=== PATIENT | female | born 1960 | race Caucasian/White ===

== ENCOUNTER → 2018-02-04 13:01 | Outpatient (CLI) | payer MEDICAID | END | disposition home or self-care (01) | LOC: D.CT 13:00 | DX: R06.02 Shortness of breath (principal) ==

== ENCOUNTER → 2018-02-14 07:29 | Outpatient (CLI) | payer MEDICAID | END | disposition home or self-care (01) | LOC: D.MRI 07:29 | DX: E27.8 Other specified disorders of adrenal gland (principal); R19.09 Other intra-abdominal and pelvic swelling, mass and lump ==

== ENCOUNTER → 2018-07-14 08:43 | Outpatient (CLI) | payer MEDICAID ==
--- NOTE | 2018-07-14 09:38 | NUR ---
PATIENT WAS SENT OVER FOR AN ABG. CALLED MEGGAN LITTLEJOHN'S NURSE REGUARDING THE RESULTS. ASKED IF I NEEDED TO SEND PATIENT TO THE OFFICE OR SOMEWHERE, WAS ADVISED TO SENT PATIENT HOME.
== END | disposition home or self-care (01) ==
LOC: D.RT 08:43
DX: Z04.89 Encounter for examination and observation for other specified reasons (principal)

== ENCOUNTER → 2018-09-05 11:07 | Outpatient (CLI) | payer MEDICAID ==
[2018-09-05 11:43] LABS: BASOPHILS 0.2 % (0-2); HEMATOCRIT 54.6 % (36.0-48.0); HEMOGLOBIN 17.4 g/dL (12-16); IMMATURE GRANULOCYTES 0.2 % (0-5); MCH 29.4 pg (26.0-34.0); MCHC 31.9 g/dL (31.0-37.0); MCV 92.2 fL (80.0-100.0); MEAN PLATELET VOLUME 11.8 fL (7.4-10.4); MONOCYTES 9.3 % (2-11); NEUTROPHILS 60.3 % (40-80); PLATELET COUNT 163 10x3/uL (130-400); RBC 5.92 10x6/uL (4.00-5.40); RDW 14.6 % (11.5-14.5)
== END | disposition home or self-care (01) ==
LOC: D.LABREF 11:07
DX: D75.1 Secondary polycythemia (principal); R53.83 Other fatigue

== ENCOUNTER → 2018-09-09 11:06 | Outpatient (CLI) | payer MEDICAID ==
[2018-09-14 03:10] LABS: ANGIOTENSIN CONVERTING ENZYME 40 U/L (14-82)
== END | disposition home or self-care (01) ==
LOC: D.RT 08-29 08:00 → D.LAB 08-29 08:45
PROVIDERS: ATTEND Internal Medicine Pulmonary Disease
DX: R91.8 Other nonspecific abnormal finding of lung field (principal); J44.9 Chronic obstructive pulmonary disease, unspecified

== ENCOUNTER 2018-12-23 10:54 | Inpatient (IN) | payer MEDICAID ==
[~2018-12-23] VITALS: Ht 167.6 cm; Wt 78.5 kg
[2018-12-23] MEDS ORDERED: RISPERDAL4 MG PO (10:58)
[2018-12-23] MEDS ORDERED: CELEXA20 MG PO (10:59)
[2018-12-23] MEDS ORDERED: TRAZODONE HCL150 MG PO (11:00)
[2018-12-23] MEDS ORDERED: FUROSEMIDE20 MG PO (11:00)
[2018-12-23 11:38] LABS: BASOPHILS 0.1 % (0-2); EOSINOPHILS 0.5 % (0-7); HEMATOCRIT 50.4 % (36.0-48.0); HEMOGLOBIN 15.4 g/dL (12-16); IMMATURE GRANULOCYTES 0.1 % (0-5); LYMPHOCYTES 10.9 % (15-50); MCH 31.4 pg (26.0-34.0); MCHC 30.6 g/dL (31.0-37.0); MCV 102.6 fL (80.0-100.0); MEAN PLATELET VOLUME 10.5 fL (7.4-10.4); MONOCYTES 9.3 % (2-11); NEUTROPHILS 79.1 % (40-80); PLATELET COUNT 147 10x3/uL (130-400); RBC 4.91 10x6/uL (4.00-5.40); RDW 13.9 % (11.5-14.5); WBC 7.5 10x3/uL (4.8-10.8)
[2018-12-23 12:00] LABS: ALBUMIN 2.9 g/dL (3.4-5.0); ALKALINE PHOSPHATASE 60 U/L (46-116); ALT (SGPT) 14 U/L (10-68); BILIRUBIN - TOTAL 0.32 mg/dL (0.2-1.3); CALC OSMOLALITY 289 mosm/kg (275-300); CALCIUM 8.2 mg/dL (8.5-10.1); CHLORIDE - SERUM 102 mmol/L (98-107); CREATININE - SERUM 0.6 mg/dL (0.6-1.3); GLUCOSE 129 mg/dL (74-106); POTASSIUM - SERUM 3.9 mmol/L (3.5-5.1); PROTEIN - SERUM 6.6 g/dL (6.4-8.2); SODIUM 145 mmol/L (136-145); TROPONIN-I 0.022 ng/mL (0.000-0.060); UREA NITROGEN 10 mg/dL (7-18); eGFR NON AFRICAN AMERICAN > 90 mL/min (90-120)
[2018-12-23 12:01] LABS: CARBON DIOXIDE 45.4 mmol/L (21.0-32.0)
[2018-12-23 12:42] VITALS: BP 125/66
[2018-12-23 16:09] VITALS: BP 125/66; BMI 39.9
[2018-12-23 20:00] VITALS: BP 143/75
[2018-12-24] VITALS: BP 137/72
[2018-12-24 04:00] VITALS: BP 142/69
[2018-12-24 05:05] LABS: BASOPHILS 0 % (0-2); EOSINOPHILS 0 % (0-7); HEMATOCRIT 50.4 % (36.0-48.0); HEMOGLOBIN 15.6 g/dL (12-16); IMMATURE GRANULOCYTES 0.3 % (0-5); LYMPHOCYTES 11.6 % (15-50); MCH 31.5 pg (26.0-34.0); MCV 101.6 fL (80.0-100.0); MEAN PLATELET VOLUME 10.8 fL (7.4-10.4); MONOCYTES 1.3 % (2-11); NEUTROPHILS 86.8 % (40-80); PLATELET COUNT 152 10x3/uL (130-400); RBC 4.96 10x6/uL (4.00-5.40); RDW 13.7 % (11.5-14.5); WBC 6.1 10x3/uL (4.8-10.8)
[2018-12-24 05:25] LABS: CALC OSMOLALITY 281 mosm/kg (275-300); CALCIUM 8.6 mg/dL (8.5-10.1); CHLORIDE - SERUM 100 mmol/L (98-107); CREATININE - SERUM 0.4 mg/dL (0.6-1.3); GLUCOSE 129 mg/dL (74-106); SODIUM 141 mmol/L (136-145); UREA NITROGEN 11 mg/dL (7-18); eGFR NON AFRICAN AMERICAN > 90 mL/min (90-120)
[2018-12-24 05:26] LABS: CARBON DIOXIDE 42.4 mmol/L (21.0-32.0)
--- NOTE | 2018-12-24 08:06 | HP ---
PATIENT: DEVEN AGARWAL MEDICAL RECORD: [id number] ACCOUNT: [id number] LOCATION:[address] : 60 ADMISSION DATE: 12/23/18 PCP: JOSE MARIA LITTLEJOHN MD HISTORY AND PHYSICAL EXAMINATION DATE OF ADMISSION: 12/23/2018. HISTORY OF PRESENT ILLNESS: Maddie is a 58-year-old female goes to small group work therapy with a diagnosis of schizophrenia. She has a history of COPD and has seen Dr. Dunlap in his clinic. She was brought in via EMS complaining of increased shortness of breath over the last 4 days. She uses oxygen at home. She continues to smoke. Denies fever or chills. No nausea or vomiting. Shortness of breath is worse with activities of daily living. She was placed on BiPAP in the ER and has done better. PAST MEDICAL HISTORY: Tobacco abuse, COPD, schizophrenia, overactive bladder, polycythemia most likely due to chronic obstructive pulmonary disease, and obesity. PAST SURGICAL HISTORY: None known. HOME MEDICATIONS: Lasix 20 mg a day, VESIcare 5 mg a day, Celexa 20 mg a day, Risperdal 4 mg b.i.d., and trazodone 100 mg at bedtime. ALLERGIES: None known. HABITS: She continues to smoke less than a pack a day now. Denies alcohol or drug use. FAMILY HISTORY: Mother is alive with atrial fibrillation, diabetes, and hypertension. Sister with heart disease. SOCIAL HISTORY: She is in a [facility] situation and small group work therapy. REVIEW OF SYSTEMS: GENERAL: No major weight changes. HEENT: No particular sinus or allergy problems. RESPIRATORY: COPD on oxygen. CARDIAC: No diagnosis of coronary artery disease or heart failure. GASTROINTESTINAL: Occasional heartburn. GENITOURINARY: She has overactive bladder. MUSCULOSKELETAL: No significant problems there. NEUROLOGIC: No migraines or seizures. PSYCHIATRIC: Has schizophrenia. PHYSICAL EXAMINATION: In the Emergency Room, VITAL SIGNS: Temperature 97.9, pulse 66, respirations 24, blood pressure 101/46, and O2 sats 98%. GENERAL: She is on BiPAP currently. industrial technology teacher in the room and she is more stable now. HEENT: Grossly within normal limits. NECK: Supple. HEART: Regular rate and rhythm. LUNGS: Distant breath sounds. No wheeze. ABDOMEN: Soft. HISTORY AND PHYSICAL [id number] DEVEN AGARWAL EXTREMITIES: No edema. LABORATORY DATA: ABG, pH 7.303, pCO2 of 92, pO2 of 57, and O2 sat was 83%. She is on 2 liters nasal cannula at that time. Basic metabolic panel is all normal. Liver enzymes are normal. Troponin 0.022. ProBNP 1591. CBC with a white count of 7500, hemoglobin 15.4, and hematocrit 54.4. Chest x-ray was read by radiologist, there is some perihilar vascular congestion superimposed multifocal infection was not excluded, trace to small pleural effusion. ASSESSMENT: 1. Chronic obstructive pulmonary disease exacerbation. 2. Schizophrenia. PLAN: Continue Lasix. Respiratory meds. Continue bypass until could be weaned off of that. IV steroids. Other tests and procedures as warranted. TRANSINT:[id number] Voice Confirmation ID: [id number] DOCUMENT ID: [id number] JOSE MARIA LITTLEJOHN MD at 0806 CC: [id number] DICTATION DATE: 12/23/18 233 SCHOOL SUPERVISOR: 12/24/18 0105 ADM IN [facility] [address] [place] [address]
[2018-12-24 09:12] VITALS: BP 103/53; BP 142/76
[2018-12-24 11:37] VITALS: BP 130/62
[2018-12-24 12:34] VITALS: Ht 167.6 cm; Wt 78.5 kg
[2018-12-24 16:44] VITALS: BP 134/78
[2018-12-24 20:00] VITALS: BP 112/59
[2018-12-25] VITALS: BP 144/80
[2018-12-25 04:00] VITALS: BP 133/73
[2018-12-25 05:53] LABS: BASOPHILS 0 % (0-2); EOSINOPHILS 0 % (0-7); HEMATOCRIT 50.1 % (36.0-48.0); HEMOGLOBIN 15.7 g/dL (12-16); IMMATURE GRANULOCYTES 0.1 % (0-5); LYMPHOCYTES 9.9 % (15-50); MCH 31.7 pg (26.0-34.0); MCHC 31.3 g/dL (31.0-37.0); MCV 101.2 fL (80.0-100.0); MEAN PLATELET VOLUME 10.8 fL (7.4-10.4); MONOCYTES 6.6 % (2-11); NEUTROPHILS 83.4 % (40-80); PLATELET COUNT 141 10x3/uL (130-400); RBC 4.95 10x6/uL (4.00-5.40); RDW 13.9 % (11.5-14.5)
[2018-12-25 05:54] LABS: WBC 7.7 10x3/uL (4.8-10.8)
[2018-12-25 06:14] LABS: CHLORIDE - SERUM 101 mmol/L (98-107); CREATININE - SERUM 0.5 mg/dL (0.6-1.3); GLUCOSE 106 mg/dL (74-106); POTASSIUM - SERUM 3.8 mmol/L (3.5-5.1); SODIUM 144 mmol/L (136-145); eGFR NON AFRICAN AMERICAN > 90 mL/min (90-120)
[2018-12-25 06:24] LABS: CALC OSMOLALITY 287 mosm/kg (275-300); UREA NITROGEN 15 mg/dL (7-18)
[2018-12-25 06:26] LABS: CARBON DIOXIDE 44.3 mmol/L (21.0-32.0)
[2018-12-25 07:46] VITALS: BP 149/80
[2018-12-25 11:46] VITALS: BP 143/77
[2018-12-25 15:21] VITALS: BP 124/68
[2018-12-25 20:00] VITALS: BP 102/54
[2018-12-26 00:11] VITALS: BP 140/70
[2018-12-26 04:00] VITALS: BP 168/78
[2018-12-26 06:44] LABS: CALCIUM 8.9 mg/dL (8.5-10.1); CHLORIDE - SERUM 99 mmol/L (98-107); CREATININE - SERUM 0.6 mg/dL (0.6-1.3); GLUCOSE 130 mg/dL (74-106); POTASSIUM - SERUM 3.6 mmol/L (3.5-5.1); SODIUM 143 mmol/L (136-145); eGFR NON AFRICAN AMERICAN > 90 mL/min (90-120)
[2018-12-26 06:56] LABS: CALC OSMOLALITY 288 mosm/kg (275-300); UREA NITROGEN 19 mg/dL (7-18)
[2018-12-26 06:58] LABS: CARBON DIOXIDE 47.2 mmol/L (21.0-32.0)
[2018-12-26 07:28] LABS: BASOPHILS 0 % (0-2); EOSINOPHILS 0 % (0-7); HEMATOCRIT 50.3 % (36.0-48.0); HEMOGLOBIN 15.7 g/dL (12-16); IMMATURE GRANULOCYTES 0.1 % (0-5); LYMPHOCYTES 11.7 % (15-50); MCH 31.2 pg (26.0-34.0); MCHC 31.2 g/dL (31.0-37.0); MCV 99.8 fL (80.0-100.0); MEAN PLATELET VOLUME 11.3 fL (7.4-10.4); MONOCYTES 7.3 % (2-11); NEUTROPHILS 80.9 % (40-80); PLATELET COUNT 147 10x3/uL (130-400); RBC 5.04 10x6/uL (4.00-5.40); RDW 14.2 % (11.5-14.5); WBC 7.6 10x3/uL (4.8-10.8)
[2018-12-26 09:01] VITALS: BP 140/89
[2018-12-26 11:41] VITALS: BP 130/86
[2018-12-26 18:48] VITALS: BP 130/60
[2018-12-26 20:00] VITALS: BP 145/74
[2018-12-27] VITALS: BP 138/72
[2018-12-27 04:00] VITALS: BP 143/68
[2018-12-27 05:51] LABS: BASOPHILS 0 % (0-2); EOSINOPHILS 0 % (0-7); HEMATOCRIT 51.7 % (36.0-48.0); HEMOGLOBIN 16.3 g/dL (12-16); IMMATURE GRANULOCYTES 0.2 % (0-5); LYMPHOCYTES 9.7 % (15-50); MCH 31.5 pg (26.0-34.0); MCHC 31.5 g/dL (31.0-37.0); MCV 99.8 fL (80.0-100.0); MEAN PLATELET VOLUME 11.1 fL (7.4-10.4); MONOCYTES 6.7 % (2-11); NEUTROPHILS 83.4 % (40-80); PLATELET COUNT 136 10x3/uL (130-400); RBC 5.18 10x6/uL (4.00-5.40); RDW 14.2 % (11.5-14.5); WBC 6.1 10x3/uL (4.8-10.8)
[2018-12-27 06:05] LABS: CALC OSMOLALITY 284 mosm/kg (275-300); CALCIUM 9.3 mg/dL (8.5-10.1); CHLORIDE - SERUM 100 mmol/L (98-107); CREATININE - SERUM 0.5 mg/dL (0.6-1.3); GLUCOSE 117 mg/dL (74-106); POTASSIUM - SERUM 3.4 mmol/L (3.5-5.1); SODIUM 141 mmol/L (136-145); UREA NITROGEN 20 mg/dL (7-18); eGFR NON AFRICAN AMERICAN > 90 mL/min (90-120)
[2018-12-27 06:27] LABS: CARBON DIOXIDE 40.5 mmol/L (21.0-32.0)
[2018-12-27 08:37] VITALS: BP 147/75
--- NOTE | 2018-12-27 11:55 | MORECARE ---
CASE MANAGEMENT DISCHARGE SUMMARY PATIENT: DEVEN AGARWAL UNIT: [id number] ADM DATE: 12/23/18 AGE: 58 : 60 SEX: F ROOM/BED: D.2130 AUTHOR: ROSA ROMAN PHYSICIAN: REFERRING PHYSICIAN: JOSE MARIA LITTLEJOHN MD DATE OF SERVICE: 12/27/18 Discharge Plan Patient Name: DEVEN AGARWAL [facility] [facility] 1960 Planned Disposition: Other Type of Facility Anticipated Discharge Date: 12/28/18 Discharge Date: Expected LOS: 5 Initial Reviewer: [email or web address] Initial Review Date: 12/27/2018 Generated: 12/27/18 12:54 pm External Providers External Provider: Kate Main Next Contact Date: 12/27/2018 Service Request Date: Service Type: Resolution: Reviewer: Comments: Coverage Notice Reviewer: [id number] - Beto Silva Notice Issued Date-Time: 12/27/2018 9:50 Notice Type: Patient Choice Letter Notice Delivered To: Patient Relationship to Patient: Telex Operator Name: Delivery Method: HAND - Hand Delivered [place] Days: Prior Verbal Notification: Recipient Understood Notice: Yes Recipient Signature: Yes Med Rec Note Co-signed by Attending: Coverage Notice Comment: no medical equipment provider preference Patient Name: DEVEN AGARWAL Page 32620 at 1155 All edits/amendments must be made on the electronic document DICTATION DATE: 12/27/18 1154 GEOINT ANALYST: DM 12/27/18 1154 RPT#: [id number] DC DATE: STATUS: ADM IN [facility] [address] [place] [address] END OF REPORT
--- NOTE | 2018-12-27 12:11 | MORECARE ---
CASE MANAGEMENT DISCHARGE SUMMARY PATIENT: DEVEN AGARWAL UNIT: [id number] ADM DATE: 12/23/18 AGE: 58 : 60 SEX: F ROOM/BED: D.2130 AUTHOR: ABEL,DOC PHYSICIAN: REFERRING PHYSICIAN: JOSE MARIA LITTLEJOHN MD DATE OF SERVICE: 12/27/18 Discharge Plan Patient Name: DEVEN AGARWAL Facility: [facility]:[place] : 1960 Planned Disposition: Other Type of Facility Anticipated Discharge Date: 12/28/18 Discharge Date: Expected LOS: 5 Initial Reviewer: [id number] Initial Review Date: 12/27/2018 Generated: 12/27/18 1:11 pm DCPIA - Discharge Planning Initial Assessment Updated by [id number]: Beto Silva on 12/27/18 12:05 pm * Is the patient Alert and Oriented? Yes * How many steps to enter\exit or inside your home? NONE * PCP DR. LITTLEJOHN * Pharmacy [facility] (MIXING MACHINE FEEDER), [facility] (SHORT TERM) * Preadmission Environment Longterm * Facility Name [facility] * ADLs Partial Dependent * Partial ADLs (Assistance needed) Medication Management * Equipment Oxygen Rolling Walker * Other Equipment ROLLATOR WALKER, HOME OXYGEN AT NIGHT ONLY [facility], MEDICAL EQUIPMENT PROVIDER * List name and contact numbers for known caregivers / representatives who currently or will assist patient after discharge: CECILIA ARGUELLES, [facility] NURSE, JASMINE CARRILLO, GREEN BUILDING ARCHITECT, * Verbal permission to speak to the caregivers and representatives has been obtained from the patient. Yes * Community resources currently utilized Other * Please name any agencies selected above. MENT[facility]ALTH DAY TREATMENT, 8 HOURS DAILY, WEDNESDAY THRU WEDNESDAY * Additional services required to return to the preadmission environment? Yes * Can the patient safely return to the preadmission environment? Yes * Has this patient been hospitalized within the prior 30 days at any hospital? No Coverage Notice Reviewer: [id number] Ric Silva Notice Issued Date-Time: 12/27/2018 9:50 Notice Type: Patient Choice Letter Notice Delivered To: Patient Relationship to Patient: High School Combination Teacher Name: Delivery Method: HAND - Hand Delivered Vinita Days: Prior Verbal Notification: Recipient Understood Notice: Yes Recipient Signature: Yes Med Rec Note Co-signed by Attending: Coverage Notice Comment: no medical equipment provider preference Last DP export: 12/27/18 10:54 a Patient Name: DEVEN AGARWAL Page 60860 at 1211 All edits/amendments must be made on the electronic document DICTATION DATE: 12/27/18 1210 INTAKE COUNSELOR: JESS 12/27/18 1210 RPT#: [id number] DC DATE: STATUS: ADM IN [facility] [address] [place] [address] END OF REPORT
--- NOTE | 2018-12-27 12:44 | MORECARE ---
CASE MANAGEMENT DISCHARGE SUMMARY PATIENT: DEVEN AGARWAL UNIT: [id number] ADM DATE: 12/23/18 AGE: 58 : 60 SEX: F ROOM/BED: D.6395 AUTHOR: ABELDOC PHYSICIAN: REFERRING PHYSICIAN: JOSE MARIA LITTLEJOHN MD DATE OF SERVICE: 12/27/18 Discharge Plan Patient Name: DEVEN AGARWAL Facility: [facility]:[place] : 1960 Planned Disposition: Other Type of Facility Anticipated Discharge Date: 12/28/18 Discharge Date: Expected LOS: 5 Initial Reviewer: [id number] Initial Review Date: 12/27/2018 Generated: 12/27/18 1:43 pm Comments DCP- Discharge Planning Updated by [email or web address]: Beto Peralta on 12/27/18 11:[address] Patient Name: DEVEN AGARWAL Admission Status: ER Accout number: [id number] Admission Date: 12-23-2018 : 1960 Admission Diagnosis: Attending: JOSE MARIA LITTLEJOHN Current LOS: 4 Anticipated DC Date: 12-28-2018 Planned Disposition: Other Type of Facility Primary Insurance: MEDICAID [place] Planned External Provider: [facility] Discharge Planning Comments: CM MET WITH PT IN ROOM TO DISCUSS DISCHARGE PLANNING AND NEEDS. PT REPORTS LIVING AT [facility] FOR THE PAST 18 YEARS. PT HAS HOME OXYGEN AND A ROLLING WALKER WITH SEAT AND BRAKES. PT DOES NOT KNOW WHO HER PROVIDER IS NOR DOES SHE KNOW WHO PROVIDES HER MEDICATIONS. PT DIRECTED CM TO CALL NURSE AT HOME, CECILIA ARGUELLES. PT ATTENDS DAY TREATMENT 8 HOURS PER DAY, WEDNESDAY THROUGH WEDNESDAY. PT HAS NO OUTSIDE SERVICES ASSISTING IN THE HOME. CM DISCUSSED AVAILABILITY OF HOME HEALTH, REHAB SERVICES AND MEDICAL EQUIPMENT. PT DENIES DISCHARGE NEEDS AND DOES WANT THE TRILOGY MACHINE, STATING SHE WILL WEAR IT AT HOME. PT REPORTS [facility] WILL PICK HER UP FOR DISCHARGE HOME. CM CALLED CECILIA ARGUELLES, , VERIFIED PT'S PHARMACY OF [facility] FOR MACHINE TOOL DESIGNER MEDICATIONS AND [facility] FOR SHORT TERM MEDICATION NEEDS. PT'S OXYGEN IS FROM [facility], BUT CECILIA DOES NOT THINK THAT [facility] PROVIDES TRILOGY. PT CAN HAVE TRILOGY AT FACILITY BUT SHE WILL BE IN DAY TREATMENT ON WEDNESDAY THRU WEDNESDAY, 8 HOURS DAILY AND WILL NOT BE ABLE TO GO HOME TO USE TRILOGY THEN. CM CALLED [facility], SPOKE TO JETHRO, THEY DO NOT PROVIDE TRILOGY MACHINES. CM CALLED [facility], , SPOKE TO WILMAN AND PROVIDED REFERRAL INFORMATION FOR TRILOGY. CM FAXED REFERRAL TO [facility], . [facility] TO PROCESS ORDER AND IF MEDICAID APPROVES, [facility] WILL DELIVER TRILOGY TO HOSPITAL. PT PLANS TO DISCHARGE BACK TO [facility]. CM WAITING ON PROCESSING OF TRILOGY ORDER AND IF ELIGIBLE, DELIVERY OF TRILOGY BY [facility]. FOR DISCHARGE BACK TO [facility], NURSE REPORT TO BE CALLED TO CECILIA ARGUELLES AT [phone], FAX DISCHARGE INFORMATION TO [facility] AT [phone]. BERT PERALTA, CASE MANAGEMENT Game Producer: Beto Peralta DCPIA - Discharge Planning Initial Assessment Updated by [id number]: Beto Peralta on 12/27/18 12:05 pm * Is the patient Alert and Oriented? Yes * How many steps to enter\exit or inside your home? NONE * PCP DR. LITTLEJOHN * Pharmacy [facility] ([place]), [facility] (SHORT TERM) * Preadmission Environment Intermediate * Facility Name [facility] WORK [facility]APY * ADLs Partial Dependent * Partial ADLs (Assistance needed) Medication Management * Equipment Oxygen Rolling Walker * Other Equipment ROLLATOR WALKER, HOME OXYGEN AT NIGHT ONLY [facility], MEDICAL EQUIPMENT PROVIDER * List name and contact numbers for known caregivers / representatives who currently or will assist patient after discharge: CECILIA ARGUELLES, [facility] NURSE, JASMINE CARRILLO, FINANCIAL INVESTMENT ADVISER, * Verbal permission to speak to the caregivers and representatives has been obtained from the patient. Yes * Community resources currently utilized Other * Please name any agencies selected above. MENTAL HEALTH DAY TREATMENT, 8 HOURS DAILY, WEDNESDAY THRU WEDNESDAY * Additional services required to return to the preadmission environment? Yes * Can the patient safely return to the preadmission environment? Yes * Has this patient been hospitalized within the prior 30 days at any hospital? No Coverage Notice Reviewer: [id number] Ric Peralta Notice Issued Date-Time: 12/27/2018 9:50 Notice Type: Patient Choice Letter Notice Delivered To: Patient Relationship to Patient: Private Duty Rn Name: Delivery Method: HAND - Hand Delivered Vinita Days: Prior Verbal Notification: Recipient Understood Notice: Yes Recipient Signature: Yes Med Rec Note Co-signed by Attending: Coverage Notice Comment: no medical equipment provider preference Last DP export: 12/27/18 11:11 a Patient Name: DEVEN AGARWAL Page 03829 at 1244 All edits/amendments must be made on the electronic document DICTATION DATE: 12/27/18 1243 INFANT NANNY: JESS 12/27/18 1243 RPT#: [id number] DC DATE: STATUS: ADM IN [facility] [address] [place] [address] END OF REPORT
--- NOTE | 2018-12-27 16:48 | MORECARE ---
CASE MANAGEMENT DISCHARGE SUMMARY PATIENT: DEVEN AGARWAL UNIT: [id number] ADM DATE: 12/23/18 AGE: 58 : 60 SEX: F ROOM/BED: D.5289 AUTHOR: ABELDOC PHYSICIAN: REFERRING PHYSICIAN: JOSE MARIA LITTLEJOHN MD DATE OF SERVICE: 12/27/18 Discharge Plan Patient Name: DEVEN AGARWAL Facility: [facility]:[place] : 1960 Planned Disposition: Other Type of Facility Anticipated Discharge Date: 12/28/18 Discharge Date: Expected LOS: 5 Initial Reviewer: [email or web address] Initial Review Date: 12/27/2018 Generated: 12/27/18 5:47 pm Comments DCP- Discharge Planning Updated by [email or web address]: Beto Peralta on 12/27/18 3:[address] Patient Name: DEVEN AGARWAL Admission Status: ER Accout number: [id number] Admission Date: 12-23-2018 : 1960 Admission Diagnosis: Attending: JOSE MARIA LITTLEJOHN Current LOS: 4 Anticipated DC Date: 12-28-2018 Planned Disposition: Other Type of Facility Primary Insurance: MEDICAID [place] Planned External Provider: [facility] Discharge Planning Comments: CM MET WITH PT IN ROOM TO DISCUSS DISCHARGE PLANNING AND NEEDS. PT REPORTS LIVING AT [facility] FOR THE PAST 18 YEARS. PT HAS HOME OXYGEN AND A ROLLING WALKER WITH SEAT AND BRAKES. PT DOES NOT KNOW WHO HER PROVIDER IS NOR DOES SHE KNOW WHO PROVIDES HER MEDICATIONS. PT DIRECTED CM TO CALL NURSE AT HOME, CECILIA ARGUELLES. PT ATTENDS DAY TREATMENT 8 HOURS PER DAY, WEDNESDAY THROUGH WEDNESDAY. PT HAS NO OUTSIDE SERVICES ASSISTING IN THE HOME. CM DISCUSSED AVAILABILITY OF HOME HEALTH, REHAB SERVICES AND MEDICAL EQUIPMENT. PT DENIES DISCHARGE NEEDS AND DOES WANT THE TRILOGY MACHINE, STATING SHE WILL WEAR IT AT HOME. PT REPORTS [facility] P[facility] HER UP FOR DISCHARGE HOME. CM CALLED CECILIA ARGUELLES, , VERIFIED PT'S PHARMACY OF [facility] FOR ALF MEDICATIONS AND [facility] FOR SHORT TERM MEDICATION NEEDS. PT'S OXYGEN IS FROM [facility], BUT CECILIA DOES NOT THINK THAT [facility] PROVIDES TRILOGY. PT CAN HAVE TRILOGY AT FACILITY BUT SHE WILL BE IN DAY TREATMENT ON WEDNESDAY THRU WEDNESDAY, 8 HOURS DAILY AND WILL NOT BE ABLE TO GO HOME TO USE TRILOGY THEN. CM CALLED [facility], SPOKE TO JETHRO, THEY DO NOT PROVIDE TRILOGY MACHINES. CM CALLED [facility], , SPOKE TO WILMAN AND PROVIDED REFERRAL INFORMATION FOR TRILOGY. CM FAXED REFERRAL TO [facility], . [facility] TO PROCESS ORDER AND IF MEDICAID APPROVES, [facility] WILL DELIVER TRILOGY TO HOSPITAL. PT PLANS TO DISCHARGE BACK TO [facility]. CM WAITING ON PROCESSING OF TRILOGY ORDER AND IF ELIGIBLE, DELIVERY OF TRILOGY BY [facility]. FOR DISCHARGE BACK TO [facility], NURSE REPORT TO BE CALLED TO CECILIA ARGUELLES AT [phone], FAX DISCHARGE INFORMATION TO [facility] AT [phone]. BERT PERALTA, CASE MANAGEMENT Rubber Insulator: Beto Peralta Appended by Beto Peralta on 12/27/2018 16:47 CDT: TRILOGY DELIVERED TO ROOM, PT INSTRUCTED ON USE BY WIL[facility] OF [facility]. [facility] LOPEZ NOTIFIED. PT PLANS TO DISCHARGE BACK TO [facility]. CM WAITING ON PROCESSING OF TRILOGY ORDER AND IF ELIGIBLE, DELIVERY OF TRILOGY BY [facility]. FOR DISCHARGE BACK TO [facility], NURSE REPORT TO BE CALLED TO CECILIA ARGUELLES AT [phone], FAX DISCHARGE INFORMATION TO [facility] AT [phone]. BERT PERALTA, CASE MANAGEMENT DCPIA - Discharge Planning Initial Assessment Updated by [id number]: Beto Peralta on 12/27/18 12:05 pm * Is the patient Alert and Oriented? Yes * How many steps to enter\exit or inside your home? NONE * PCP DR. LITTLEJOHN * Pharmacy [facility] ([facility]), [place] ([place] TERM) * Preadmission Environment Jail * Facility Name [facility] WORK [facility] * ADLs Partial Dependent * Partial ADLs (Assistance needed) Medication Management * Equipment Oxygen Rolling Walker * Other Equipment ROLLATOR WALKER, HOME OXYGEN AT NIGHT ONLY [facility], MEDICAL EQUIPMENT PROVIDER * List name and contact numbers for known caregivers / representatives who currently or will assist patient after discharge: CECILIA ARGUELLES, [facility] NURSE, JASMINE GERARDO, SUPERVISOR IRRIGATION, * Verbal permission to speak to the caregivers and representatives has been obtained from the patient. Yes * Community resources currently utilized Other * Please name any agencies selected above. MENTAL HEALTH DAY TREATMENT, 8 HOURS DAILY, WEDNESDAY THRU WEDNESDAY * Additional services required to return to the preadmission environment? Yes * Can the patient safely return to the preadmission environment? Yes * Has this patient been hospitalized within the prior 30 days at any hospital? No Coverage Notice Reviewer: [id number] Ric Peralta Notice Issued Date-Time: 12/27/2018 9:50 Notice Type: Patient Choice Letter Notice Delivered To: Patient Relationship to Patient: Pathology Secretary Name: Delivery Method: HAND - Hand Delivered Vinita Days: Prior Verbal Notification: Recipient Understood Notice: Yes Recipient Signature: Yes Med Rec Note Co-signed by Attending: Coverage Notice Comment: no medical equipment provider preference Last DP export: 12/27/18 11:43 a Patient Name: DEVEN AGARWAL Page 96843 at 1648 All edits/amendments must be made on the electronic document DICTATION DATE: 12/27/181646 JEWEL HOLE ROUGH OPENER: JESS 12/27/181646 RPT#: [id number] DC DATE: STATUS: ADM IN [facility] [address] [place] [address] END OF REPORT
[2018-12-27 18:31] VITALS: BP 150/87
[2018-12-27 18:36] VITALS: BP 142/75
[2018-12-27 20:00] VITALS: BP 162/90
[2018-12-28] VITALS: BP 118/59
[2018-12-28 04:00] VITALS: BP 136/56
[2018-12-28 07:05] LABS: BASOPHILS 0 % (0-2); EOSINOPHILS 0 % (0-7); HEMATOCRIT 50.4 % (36.0-48.0); IMMATURE GRANULOCYTES 0.2 % (0-5); LYMPHOCYTES 11.1 % (15-50); MCH 31.5 pg (26.0-34.0); MCHC 31.7 g/dL (31.0-37.0); MCV 99.2 fL (80.0-100.0); MEAN PLATELET VOLUME 11.1 fL (7.4-10.4); MONOCYTES 7.4 % (2-11); NEUTROPHILS 81.3 % (40-80); PLATELET COUNT 114 10x3/uL (130-400); RBC 5.08 10x6/uL (4.00-5.40); WBC 6.5 10x3/uL (4.8-10.8)
[2018-12-28 07:25] LABS: CALC OSMOLALITY 285 mosm/kg (275-300); CALCIUM 9.2 mg/dL (8.5-10.1); CARBON DIOXIDE 38.2 mmol/L (21.0-32.0); CHLORIDE - SERUM 102 mmol/L (98-107); GLUCOSE 125 mg/dL (74-106); POTASSIUM - SERUM 3.9 mmol/L (3.5-5.1); SODIUM 142 mmol/L (136-145); UREA NITROGEN 18 mg/dL (7-18)
[2018-12-28 07:32] LABS: CREATININE - SERUM 0.7 mg/dL (0.6-1.3); eGFR NON AFRICAN AMERICAN > 90 mL/min (90-120)
[2018-12-28 09:47] VITALS: BP 118/65
[2018-12-28 17:47] VITALS: BP 124/71
[2018-12-28 17:56] VITALS: BP 139/76
[2018-12-28 20:00] VITALS: BP 138/64
[2018-12-29 00:30] VITALS: BP 111/59
[2018-12-29 04:30] VITALS: BP 121/87
[2018-12-29 05:11] LABS: BASOPHILS 0 % (0-2); EOSINOPHILS 0 % (0-7); HEMATOCRIT 51.5 % (36.0-48.0); HEMOGLOBIN 16.1 g/dL (12-16); IMMATURE GRANULOCYTES 0.3 % (0-5); MCH 31.3 pg (26.0-34.0); MCHC 31.3 g/dL (31.0-37.0); MCV 100.2 fL (80.0-100.0); MEAN PLATELET VOLUME 11.3 fL (7.4-10.4); MONOCYTES 5.6 % (2-11); NEUTROPHILS 88.1 % (40-80); PLATELET COUNT 117 10x3/uL (130-400); RBC 5.14 10x6/uL (4.00-5.40)
[2018-12-29 05:46] LABS: CALC OSMOLALITY 284 mosm/kg (275-300); CALCIUM 8.9 mg/dL (8.5-10.1); CARBON DIOXIDE 36.1 mmol/L (21.0-32.0); CHLORIDE - SERUM 102 mmol/L (98-107); CREATININE - SERUM 0.8 mg/dL (0.6-1.3); GLUCOSE 127 mg/dL (74-106); POTASSIUM - SERUM 3.5 mmol/L (3.5-5.1); SODIUM 141 mmol/L (136-145); UREA NITROGEN 17 mg/dL (7-18); eGFR NON AFRICAN AMERICAN 78 mL/min (90-120)
[2018-12-29 07:48] VITALS: BP 130/70
[2018-12-29 14:58] VITALS: BP 136/69
--- NOTE | 2018-12-29 15:17 | MORECARE ---
CASE MANAGEMENT DISCHARGE SUMMARY PATIENT: DEVEN AGARWAL UNIT: [id number] ADM DATE: 12/23/18 AGE: 58 : 60 SEX: F ROOM/BED: D.4810 AUTHOR: ABELDOC PHYSICIAN: REFERRING PHYSICIAN: JOSE MARIA LITTLEJOHN MD DATE OF SERVICE: 12/29/18 Discharge Plan Patient Name: DEVEN AGARWAL Facility: [facility]:[place] : 1960 Planned Disposition: Other Type of Facility Anticipated Discharge Date: 12/28/18 Discharge Date: Expected LOS: 5 Initial Reviewer: [email or web address] Initial Review Date: 12/27/2018 Generated: 12/29/18 4:17 pm Comments DCP- Discharge Planning Updated by [email or web address]: Beto Peralta on 12/27/18 3:[address] Patient Name: EDVEN AGARWAL Admission Status: ER Accout number: [id number] Admission Date: 12-23-2018 : 1960 Admission Diagnosis: Attending: JOSE MARIA LITTLEJOHN Current LOS: 4 Anticipated DC Date: 12-28-2018 Planned Disposition: Other Type of Facility Primary Insurance: MEDICAID [place] Planned External Provider: [facility] Discharge Planning Comments: CM MET WITH PT IN ROOM TO DISCUSS DISCHARGE PLANNING AND NEEDS. PT REPORTS LIVING AT [facility] FOR THE PAST 18 YEARS. PT HAS HOME OXYGEN AND A ROLLING WALKER WITH SEAT AND BRAKES. PT DOES NOT KNOW WHO HER PROVIDER IS NOR DOES SHE KNOW WHO PROVIDES HER MEDICATIONS. PT DIRECTED CM TO CALL NURSE AT HOME, CECILIA ARGUELLES. PT ATTENDS DAY TREATMENT 8 HOURS PER DAY, WEDNESDAY THROUGH WEDNESDAY. PT HAS NO OUTSIDE SERVICES ASSISTING IN THE HOME. CM DISCUSSED AVAILABILITY OF HOME HEALTH, REHAB SERVICES AND MEDICAL EQUIPMENT. PT DENIES DISCHARGE NEEDS AND DOES WANT THE TRILOGY MACHINE, STATING SHE WILL WEAR IT AT HOME. PT REPORTS [facility] WILL PICK HER UP FOR DISCHARGE HOME. CM CALLED CECILIA ARGUELLES, , VERIFIED PT'S PHARMACY OF [facility] FOR SNF MEDICATIONS AND [facility] FOR SHORT TERM MEDICATION NEEDS. PT'S OXYGEN IS FROM [facility], BUT CECILIA DOES NOT THINK THAT [facility] PROVIDES TRILOGY. PT CAN HAVE TRILOGY AT FACILITY BUT SHE WILL BE IN DAY TREATMENT ON WEDNESDAY THRU WEDNESDAY, 8 HOURS DAILY AND WILL NOT BE ABLE TO GO HOME TO USE TRILOGY THEN. CM CALLED [facility], SPOKE TO JETHRO, THEY DO NOT PROVIDE TRILOGY MACHINES. CM CALLED [facility], , SPOKE TO WILMAN AND PROVIDED REFERRAL INFORMATION FOR TRILOGY. CM FAXED REFERRAL TO [facility], . [facility] TO PROCESS ORDER AND IF MEDICAID APPROVES, [facility] WILL DELIVER TRILOGY TO HOSPITAL. PT PLANS TO DISCHARGE BACK TO [facility]. CM WAITING ON PROCESSING OF TRILOGY ORDER AND IF ELIGIBLE, DELIVERY OF TRILOGY BY [facility]. FOR DISCHARGE BACK TO [facility], NURSE REPORT TO BE CALLED TO CECILIA ARGUELLES AT [phone], FAX DISCHARGE INFORMATION TO [facility] AT [phone]. BERT PERALTA, CASE MANAGEMENT Manager Utilization Management: Beto Peralta Appended by Beto Peralta on 12/27/2018 16:47 CDT: TRILOGY DELIVERED TO ROOM, PT INSTRUCTED ON USE BY WILMAN OF [facility]. DR. LOPEZ NOTIFIED. PT PLANS TO DISCHARGE BACK TO [facility]. CM WAITING ON PROCESSING OF TRILOGY ORDER AND IF ELIGIBLE, DELIVERY OF TRILOGY BY [facility]. FOR DISCHARGE BACK TO [facility], NURSE REPORT TO BE CALLED TO CECILIA ARGUELLES AT [phone], FAX DISCHARGE INFORMATION TO [facility] AT [phone]. BERT PERALTA, CASE MANAGEMENT DCPIA - Discharge Planning Initial Assessment Updated by [id number]: Beto Peralta on 12/27/18 12:05 pm * Is the patient Alert and Oriented? Yes * How many steps to enter\exit or inside your home? NONE * PCP DR. LITTLEJOHN * Pharmacy [facility] ([facility]), [place] ([place] TERM) * Preadmission Environment Prison * Facility Name [facility] * ADLs Partial Dependent * Partial ADLs (Assistance needed) Medication Management * Equipment Oxygen Rolling Walker * Other Equipment ROLLATOR WALKER, HOME OXYGEN AT NIGHT ONLY [facility], MEDICAL EQUIPMENT PROVIDER * List name and contact numbers for known caregivers / representatives who currently or will assist patient after discharge: CECILIA ARGUELLES, [facility] NURSE, JASMINE GERARDO, ADMIN DIR, * Verbal permission to speak to the caregivers and representatives has been obtained from the patient. Yes * Community resources currently utilized Other * Please name any agencies selected above. MENTAL HEALTH DAY TREATMENT, 8 HOURS DAILY, WEDNESDAY THRU WEDNESDAY * Additional services required to return to the preadmission environment? Yes * Can the patient safely return to the preadmission environment? Yes * Has this patient been hospitalized within the prior 30 days at any hospital? No External Providers [facility] Next Contact Date: 12/29/2018 Service Request Date: Service Type: Resolution: Reviewer: Comments: Coverage Notice Reviewer: [email or web address] Ric Peralta Notice Issued Date-Time: 12/27/2018 9:50 Notice Type: Patient Choice Letter Notice Delivered To: Patient Relationship to Patient: General Maintenance Engineer Name: Delivery Method: HAND - Hand Delivered [place] Days: Prior Verbal Notification: Recipient Understood Notice: Yes Recipient Signature: Yes Med Rec Note Co-signed by Attending: Coverage Notice Comment: no medical equipment provider preference Last DP export: 12/27/18 3:47 p Patient Name: DEVEN AGARWAL Page 35501 at 1517 All edits/amendments must be made on the electronic document DICTATION DATE: 12/29/181516 TRANSITIONAL LIVING SPECIALIST: JESS 12/29/181516 RPT#: [id number] DC DATE: STATUS: ADM IN [facility] [address] [place] [address] END OF REPORT
--- NOTE | 2018-12-29 15:25 | MORECARE ---
CASE MANAGEMENT DISCHARGE SUMMARY PATIENT: DEVEN AGARWAL UNIT: [id number] ADM DATE: 12/23/18 AGE: 58 : 60 SEX: F ROOM/BED: D.1830 AUTHOR: ABEL,DOC PHYSICIAN: REFERRING PHYSICIAN: JOSE MARIA LITTLEJOHN MD DATE OF SERVICE: 12/29/18 Discharge Plan Patient Name: DEVEN AGARWAL Facility: [facility]:[place] : 1960 Planned Disposition: Other Type of Facility Anticipated Discharge Date: 12/28/18 Discharge Date: Expected LOS: 5 Initial Reviewer: [id number] Initial Review Date: 12/27/2018 Generated: 12/29/18 4:25 pm Comments DCP- Discharge Planning Updated by [id number]: Beto Peralta on 12/29/18 2:[address] Patient Name: DEVEN AGARWAL Encounter No: [id number] : 1960 Primary Insurance: [place]ID [place] Anticipated DC Date: 12-28-2018 Planned Disposition: Other Type of Facility External Planned Provider: [facility] DCP follow-up note: CM RECEIVED CALL FROM CECILIA OF [facility] ASKING FOR UPDATE AND PROJECTED DISCHARGE DATE. CM FAXED CURRENT MEDICATIONS LIST AT [facility]'S REQUEST TO [phone]. PT PLANS TO DISCHARGE BACK TO [facility]. CM WAITING ON PROCESSING OF TRILOGY ORDER AND IF ELIGIBLE, DELIVERY OF TRILOGY BY [facility]. FOR DISCHARGE BACK TO [facility], NURSE REPORT TO BE CALLED TO CECILIA ARGUELLES AT [phone], FAX DISCHARGE INFORMATION TO [facility] AT [phone]. BERT PERALTA, CASE MANAGEMENT DCP- Discharge Planning Updated by [id number]: Beto Peralta on 12/27/18 3:[address] Patient Name: DEVEN AGARWAL Admission Status: ER Accout number: [id number] Admission Date: 12-23-2018 : 1960 Admission Diagnosis: Attending: JOSE MARIA LITTLEJOHN Current LOS: 4 Anticipated DC Date: 12-28-2018 Planned Disposition: Other Type of Facility Primary Insurance: MED[place]ID [place] Planned External Provider: [facility] Discharge Planning Comments: CM MET WITH PT IN ROOM TO DISCUSS DISCHARGE PLANNING AND NEEDS. PT REPORTS LIVING AT [facility] FOR THE PAST 18 YEARS. PT HAS HOME OXYGEN AND A ROLLING WALKER WITH SEAT AND BRAKES. PT DOES NOT KNOW WHO HER PROVIDER IS NOR DOES SHE KNOW WHO PROVIDES HER MEDICATIONS. PT DIRECTED CM TO CALL NURSE AT HOME, CECILIA ARGUELLES. PT ATTENDS DAY TREATMENT 8 HOURS PER DAY, WEDNESDAY THROUGH WEDNESDAY. PT HAS NO OUTSIDE SERVICES ASSISTING IN THE HOME. CM DISCUSSED AVAILABILITY OF HOME HEALTH, REHAB SERVICES AND MEDICAL EQUIPMENT. PT DENIES DISCHARGE NEEDS AND DOES WANT THE TRILOGY MACHINE, STATING SHE WILL WEAR IT AT HOME. PT REPORTS [facility] WILL PICK HER UP FOR DISCHARGE HOME. CM CALLED CECILIA ARGUELLES, , VERIFIED PT'S PHARMACY OF [facility] AND [facility] FOR SHORT TERM MEDICATION NEEDS. PT'S OXYGEN IS FROM [facility], BUT CECILIA DOES NOT THINK THAT [facility] PROVIDES TRILOGY. PT CAN HAVE TRILOGY AT FACILITY BUT SHE WILL BE IN DAY TREATMENT ON WEDNESDAY THRU WEDNESDAY, 8 HOURS DAILY AND WILL NOT BE ABLE TO GO HOME TO USE TRILOGY THEN. CM CALLED [facility], SPOKE TO JETHRO, THEY DO NOT PROVIDE TRILOGY MACHINES. CM CALLED [facility], , SPOKE TO WILMAN AND PROVIDED REFERRAL INFORMATION FOR TRILOGY. CM FAXED REFERRAL TO [facility], . WILMAN TO PROCESS ORDER AND IF MEDICAID APPROVES, [facility] WILL DELIVER TRILOGY TO HOSPITAL. PT PLANS TO DISCHARGE BACK TO [facility]. CM WAITING ON PROCESSING OF TRILOGY ORDER AND IF ELIGIBLE, DELIVERY OF TRILOGY BY [facility]. FOR DISCHARGE BACK TO [facility], NURSE REPORT TO BE CALLED TO CECILIA ARGUELLES AT [phone], FAX DISCHARGE INFORMATION TO [facility] AT [phone]. BERT PERALTA, CASE MANAGEMENT Human Capital Manager: Beto Peralta Appended by Beto Peralta on 12/27/2018 16:47 CDT: TRILOGY DELIVERED TO ROOM, PT INSTRUCTED ON USE BY WILMAN OF [facility]. DR. LOPEZ NOTIFIED. PT PLANS TO DISCHARGE BACK TO [facility]. CM WAITING ON PROCESSING OF TRILOGY ORDER AND IF ELIGIBLE, [facility] FOR DISCHARGE BACK TO [facility], NURSE REPORT TO BE CALLED TO CECILIA ARGUELLES AT [phone], FAX DISCHARGE INFORMATION TO [facility] AT [phone]. BERT PERALTA, CASE MANAGEMENT DCPIA - Discharge Planning Initial Assessment Updated by [id number]: Beto Peralta on 12/27/18 12:05 pm * Is the patient Alert and Oriented? Yes * How many steps to enter\exit or inside your home? NONE * PCP DR. LITTLEJOHN * Pharmacy [facility] ([facility] [place]), [facility] (SHORT TERM) * Preadmission Environment Usp * Facility Name [facility] WORK THERAPY * ADLs Partial Dependent * Partial ADLs (Assistance needed) Medication Management * Equipment Oxygen Rolling Walker * Other Equipment ROLLATOR WALKER, HOME OXYGEN AT NIGHT ONLY [employer], MEDICAL EQUIPMENT PROVIDER * List name and contact numbers for known caregivers / representatives who currently or will assist patient after discharge: CECILIA ARGUELLES, [facility] NURSE, JASMINE CARRILLO, POWER SWEEPER OPERATOR, * Verbal permission to speak to the caregivers and representatives has been obtained from the patient. Yes * Community resources currently utilized Other * Please name any agencies selected above. MENTAL HEALTH DAY TREATMENT, 8 HOURS DAILY, WEDNESDAY THRU WEDNESDAY * Additional services required to return to the preadmission environment? Yes * Can the patient safely return to the preadmission environment? Yes * Has this patient been hospitalized within the prior 30 days at any hospital? No External Providers [facility] Next Contact Date: 12/29/2018 Service Request Date: Service Type: Resolution: Reviewer: Comments: Coverage Notice Reviewer: [id number] - Beto Peralta Notice Issued Date-Time: 12/27/2018 9:50 Notice Type: Patient Choice Letter Notice Delivered To: Patient Relationship to Patient: Coronary Clinical Specialist Name: Delivery Method: HAND - Hand Delivered [place] Days: Prior Verbal Notification: Recipient Understood Notice: Yes Recipient Signature: Yes Med Rec Note Co-signed by Attending: Coverage Notice Comment: no medical equipment provider preference Last DP export: 12/29/18 2:17 p Patient Name: DEVEN AGARWAL Page [id number] at 1525 All edits/amendments must be made on the electronic document DICTATION DATE: 12/29/18 1525 COMBINING MACHINE OPERATOR: JESS 12/29/18 1525 RPT#: [id number] DC DATE: STATUS: ADM IN [facility] [address] [place] [address] END OF REPORT
[2018-12-29 20:00] VITALS: BP 133/61
[2018-12-30 00:15] VITALS: BP 110/68
[2018-12-30 04:30] VITALS: BP 131/67
[2018-12-30 08:12] VITALS: BP 107/62
[2018-12-30] MEDS ORDERED: PREDNISONE20 MG PO (08:53)
[2018-12-30] MEDS ORDERED: FUROSEMIDE40 MG PO ×2 (08:54→11:53)
[2018-12-30] MEDS ORDERED: MUCINEX DM ER1 EAC1 PO (10:14)
[2018-12-30] MEDS ORDERED: TRELEGY ELLIPT1 EACH INH (10:15)
[2018-12-30] MEDS ORDERED: ALBUTEROL SULF8.5 GM INH (10:15)
[2018-12-30] MEDS ORDERED: IPRAT-ALBUT 0.5-3 ML UPD (10:16)
[2018-12-30] MEDS ORDERED: PREDNISONE10 MG PO (11:52)
[2018-12-30] MEDS ORDERED: FLOVENT HFA 11012 GM INH (11:56)
--- NOTE | 2018-12-30 12:23 | MORECARE ---
CASE MANAGEMENT DISCHARGE SUMMARY PATIENT: DEVEN AGARWAL UNIT: [id number] ADM DATE: 12/23/18 AGE: 58 : 60 SEX: F ROOM/BED: D.2130 AUTHOR: ABEL,DOC PHYSICIAN: REFERRING PHYSICIAN: JOSE MARIA LITTLEJOHN MD DATE OF SERVICE: 12/30/18 Discharge Plan Patient Name: DEVEN AGARWAL Facility: [facility]:[place] : 1960 Planned Disposition: Other Type of Facility Anticipated Discharge Date: 12/30/18 Discharge Date: Expected LOS: 7 Initial Reviewer: [id number] Initial Review Date: 12/27/2018 Generated: 12/30/18 1:22 pm Comments DCP- Discharge Planning Updated by [id number]: Beto Peralta on 12/29/18 2:[address] Patient Name: DEVEN AGARWAL Encounter No: [id number] : 1960 Primary Insurance: [place]ID [place] Anticipated DC Date: 12-28-2018 Planned Disposition: Other Type of Facility External Planned Provider: [facility] GROUP [facility]AP[facility] DCP follow-up note: CM RECEIVED CALL FROM CECILIA OF [facility] ASKING FOR UPDATE AND PROJECTED DISCHARGE DATE. CM FAXED CURRENT MEDICATIONS LIST AT [facility]'S REQUEST TO [phone]. PT PLANS TO DISCHARGE BACK TO [facility]. CM WAITING ON PROCESSING OF TRILOGY ORDER AND IF ELIGIBLE, DELIVERY OF TRILOGY BY [facility]. FOR DISCHARGE BACK TO [facility], NURSE REPORT TO BE CALLED TO CECILIA ARGUELLES AT [phone], FAX DISCHARGE INFORMATION TO [facility] AT [phone]. BERT PERALTA, CASE MANAGEMENT DCP- Discharge Planning Updated by [id number]: Beto Peralta on 12/27/18 3:[address] Patient Name: DEVEN AGARWAL Admission Status: ER Accout number: [id number] Admission Date: 12-23-2018 : 1960 Admission Diagnosis: Attending: JOSE MARIA LITTLEJOHN Current LOS: 4 Anticipated DC Date: 12-28-2018 Planned Disposition: Other Type of Facility Primary Insurance: [place]ID [place] Planned External Provider: [facility] Discharge Planning Comments: CM MET WITH PT IN ROOM TO DISCUSS DISCHARGE PLANNING AND NEEDS. PT REPORTS LIVING AT [facility] FOR THE PAST 18 YEARS. PT HAS HOME OXYGEN AND A ROLLING WALKER WITH SEAT AND BRAKES. PT DOES NOT KNOW WHO HER PROVIDER IS NOR DOES SHE KNOW WHO PROVIDES HER MEDICATIONS. PT DIRECTED CM TO CALL NURSE AT HOME, CECILIA ARGUELLES. PT ATTENDS DAY TREATMENT 8 HOURS PER DAY, WEDNESDAY THROUGH WEDNESDAY. PT HAS NO OUTSIDE SERVICES ASSISTING IN THE HOME. CM DISCUSSED AVAILABILITY OF HOME HEALTH, REHAB SERVICES AND MEDICAL EQUIPMENT. PT DENIES DISCHARGE NEEDS AND DOES WANT THE TRILOGY MACHINE, STATING SHE WILL WEAR IT AT HOME. PT REPORTS [facility] WILL P[facility] HER UP FOR DISCHARGE HOME. CM CALLED CECILIA ARGUELLES, , VERIFIED PT'S PHARMACY OF [facility] FOR [facility]ICATION[facility] AND [facility] FOR SHORT TERM MEDICATION NEEDS. PT'S OXYGEN IS FROM [facility], BUT CECILIA DOES NOT THINK THAT [facility] PROVIDES TRILOGY. PT CAN HAVE TRILOGY AT FACILITY BUT SHE WILL BE IN DAY TREATMENT ON WEDNESDAY THRU WEDNESDAY, 8 HOURS DAILY AND WILL NOT BE ABLE TO GO HOME TO USE TRILOGY THEN. CM CALLED [facility], SPOKE TO JETHRO, THEY DO NOT PROVIDE TRILOGY MACHINES. CM CALLED [facility], , SPOKE TO WILMAN AND PROVIDED REFERRAL INFORMATION FOR TRILOGY. CM FAXED REFERRAL TO [facility], . WILMAN TO PROCESS ORDER AND IF MEDICAID APPROVES, [facility] WILL DELIVER TRILOGY TO HOSPITAL. PT PLANS TO DISCHARGE BACK TO [facility]. CM WAITING ON PROCESSING OF TRILOGY ORDER AND IF ELIGIBLE, DELIVERY OF TRILOGY BY [facility]. FOR DISCHARGE BACK TO [facility], NURSE REPORT TO BE CALLED TO CECILIA ARGUELLES AT [phone], FAX DISCHARGE INFORMATION TO [facility] AT [phone]. BERT PERALTA, CASE MANAGEMENT [employer] Plans Staff Officer: Beto Peralta Appended by Beto Peralta on 12/27/2018 16:47 CDT: TRILOGY DELIVERED TO ROOM, PT INSTRUCTED ON USE BY WILMAN OF [facility]. DR. LOPEZ NOTIFIED. PT PLANS TO DISCHARGE BACK TO [facility]. CM WAITING ON PROCESSING OF TRILOGY ORDER AND IF ELIGIBLE, [facility] FOR DISCHARGE BACK TO [facility], NURSE REPORT TO BE CALLED TO CECILIA ARGUELLES AT [phone], FAX DISCHARGE INFORMATION TO [facility] AT [phone]. BERT PERALTA, CASE MANAGEMENT DCPIA - Discharge Planning Initial Assessment Updated by [id number]: Beto Peralta on 12/27/18 12:05 pm * Is the patient Alert and Oriented? Yes * How many steps to enter\exit or inside your home? NONE * PCP DR. LITTLEJOHN * Pharmacy [facility] ([facility]), [facility] (SHORT TERM) * Preadmission Environment Retirement * Facility Name [facility] WORK THERAPY * ADLs Partial Dependent * Partial ADLs (Assistance needed) Medication Management * Equipment Oxygen Rolling Walker * Other Equipment ROLLATOR WALKER, HOME OXYGEN AT NIGHT ONLY [employer], MEDICAL EQUIPMENT PROVIDER * List name and contact numbers for known caregivers / representatives who currently or will assist patient after discharge: CECILIA ARGUELLES, [facility] NURSE, JASMINE CARRILLO, STUDENT RECORDS SPECIALIST, * Verbal permission to speak to the caregivers and representatives has been obtained from the patient. Yes * Community resources currently utilized Other * Please name any agencies selected above. MENTAL HEALTH DAY TREATMENT, 8 HOURS DAILY, WEDNESDAY THRU WEDNESDAY * Additional services required to return to the preadmission environment? Yes * Can the patient safely return to the preadmission environment? Yes * Has this patient been hospitalized within the prior 30 days at any hospital? No Coverage Notice Reviewer: [id number] - Beto Peralta Notice Issued Date-Time: 12/27/2018 9:50 Notice Type: Patient Choice Letter Notice Delivered To: Patient Relationship to Patient: City Engineer Name: Delivery Method: HAND - Hand Delivered [place] Days: Prior Verbal Notification: Recipient Understood Notice: Yes Recipient Signature: Yes Med Rec Note Co-signed by Attending: Coverage Notice Comment: no medical equipment provider preference Last DP export: 12/29/18 2:25 p Patient Name: DEVEN AGARWAL Page 99265 at 1223 All edits/amendments must be made on the electronic document DICTATION DATE: 12/30/18 1222 PSYCHOLOGY LECTURER: JESS 12/30/18 1222 RPT#: [id number] DC DATE: STATUS: ADM IN [facility] [address] [place] [address] END OF REPORT
--- NOTE | 2018-12-30 12:32 | MORECARE ---
CASE MANAGEMENT DISCHARGE SUMMARY PATIENT: DEVEN AGARWAL UNIT: [id number] ADM DATE: 12/23/18 AGE: 58 : 60 SEX: F ROOM/BED: D.2130 AUTHOR: ABEL,DOC PHYSICIAN: REFERRING PHYSICIAN: JOSE MARIA LITTLEJOHN MD DATE OF SERVICE: 12/30/18 Discharge Plan Patient Name: DEVEN AGARWAL Facility: [facility]:[place] : 1960 Planned Disposition: Other Type of Facility Anticipated Discharge Date: 12/30/18 Discharge Date: Expected LOS: 7 Initial Reviewer: [id number] Initial Review Date: 12/27/2018 Generated: 12/30/18 1:32 pm Comments DCP- Discharge Planning Updated by [id number]: Beto Peralta on 12/29/18 2:[address] Patient Name: DEVEN AGARWAL Encounter No: [id number] : 1960 Primary Insurance: [place]ID [place] Anticipated DC Date: 12-28-2018 Planned Disposition: Other Type of Facility External Planned Provider: [facility] GROUP THERAPY [facility] DCP follow-up note: CM RECEIVED CALL FROM CECILIA OF [facility] ASKING FOR UPDATE AND PROJECTED DISCHARGE DATE. CM FAXED CURRENT MEDICATIONS LIST AT [facility]'S REQUEST TO [phone]. PT PLANS TO DISCHARGE BACK TO [facility]. CM WAITING ON PROCESSING OF TRILOGY ORDER AND IF ELIGIBLE, DELIVERY OF TRILOGY BY [facility]. FOR DISCHARGE BACK TO [facility], NURSE REPORT TO BE CALLED TO CECILIA ARGUELLES AT [phone], FAX DISCHARGE INFORMATION TO [facility] AT [phone]. BERT PERALTA, CASE MANAGEMENT DCP- Discharge Planning Updated by [id number]: Beto Peralta on 12/27/18 3:[address] Patient Name: DEVEN AGARWAL Admission Status: ER Accout number: [id number] Admission Date: 12-23-2018 : 1960 Admission Diagnosis: Attending: JOSE MARIA LITTLEJOHN Current LOS: 4 Anticipated DC Date: 12-28-2018 Planned Disposition: Other Type of Facility Primary Insurance: [place]ID [place] Planned External Provider: [facility] Discharge Planning Comments: CM MET WITH PT IN ROOM TO DISCUSS DISCHARGE PLANNING AND NEEDS. PT REPORTS LIVING AT [facility] FOR THE PAST 18 YEARS. PT HAS HOME OXYGEN AND A ROLLING WALKER WITH SEAT AND BRAKES. PT DOES NOT KNOW WHO HER PROVIDER IS NOR DOES SHE KNOW WHO PROVIDES HER MEDICATIONS. PT DIRECTED CM TO CALL NURSE AT HOME, CECILIA ARGUELLES. PT ATTENDS DAY TREATMENT 8 HOURS PER DAY, WEDNESDAY THROUGH WEDNESDAY. PT HAS NO OUTSIDE SERVICES ASSISTING IN THE HOME. CM DISCUSSED AVAILABILITY OF HOME HEALTH, REHAB SERVICES AND MEDICAL EQUIPMENT. PT DENIES DISCHARGE NEEDS AND DOES WANT THE TRILOGY MACHINE, STATING SHE WILL WEAR IT AT HOME. PT REPORTS [facility] WILL PICK HER UP FOR DISCHARGE HOME. CM CALLED CECILIA ARGUELLES, , VERIFIED PT'S PHARMACY OF [facility] AND [facility] FOR SHORT TERM MEDICATION NEEDS. PT'S OXYGEN IS FROM [facility], BUT CECILIA DOES NOT THINK THAT [facility] PROVIDES TRILOGY. PT CAN HAVE TRILOGY AT FACILITY BUT SHE WILL BE IN DAY TREATMENT ON WEDNESDAY THRU WEDNESDAY, 8 HOURS DAILY AND WILL NOT BE ABLE TO GO HOME TO USE TRILOGY THEN. CM CALLED [facility], SPOKE TO JETHRO, THEY DO NOT PROVIDE TRILOGY MACHINES. CM CALLED [facility], , SPOKE TO WILMAN AND PROVIDED REFERRAL INFORMATION FOR TRILOGY. CM FAXED REFERRAL TO [facility], . WILMAN TO PROCESS ORDER AND IF MEDICAID APPROVES, [facility] WILL DELIVER TRILOGY TO HOSPITAL. PT PLANS TO DISCHARGE BACK TO [facility]. CM WAITING ON PROCESSING OF TRILOGY ORDER AND IF ELIGIBLE, DELIVERY OF TRILOGY BY [facility]. FOR DISCHARGE BACK TO [facility], NURSE REPORT TO BE CALLED TO CECILIA ARGUELLES AT [phone], FAX DISCHARGE INFORMATION TO [facility] AT [phone]. BERT PERALTA, CASE MANAGEMENT Diesel Retrofit Designer: Beto Peralta Appended by Beto Peralta on 12/27/2018 16:47 CDT: TRILOGY DELIVERED TO ROOM, PT INSTRUCTED ON USE BY WILMAN OF [facility]. DR. LOPEZ NOTIFIED. PT PLANS TO DISCHARGE BACK TO [facility]. CM WAITING ON PROCESSING OF TRILOGY ORDER AND IF ELIGIBLE, [facility] FOR DISCHARGE BACK TO [facility], NURSE REPORT TO BE CALLED TO CECILIA ARGUELLES AT [phone], FAX DISCHARGE INFORMATION TO [facility] AT [phone]. BERT PERALTA, CASE MANAGEMENT DCPIA - Discharge Planning Initial Assessment Updated by [id number]: Beto Peralta on 12/27/18 12:05 pm * Is the patient Alert and Oriented? Yes * How many steps to enter\exit or inside your home? NONE * PCP DR. LITTLEJOHN * Pharmacy [facility] ([facility] SERVICE TECHNICIAN), [facility] (SHORT TERM) * Preadmission Environment Care Home * Facility Name [facility] WORK THERAPY * ADLs Partial Dependent * Partial ADLs (Assistance needed) Medication Management * Equipment Oxygen Rolling Walker * Other Equipment ROLLATOR WALKER, HOME OXYGEN AT NIGHT ONLY [employer], MEDICAL EQUIPMENT PROVIDER * List name and contact numbers for known caregivers / representatives who currently or will assist patient after discharge: CECILIA ARGUELLES, [facility] NURSE, JASMINE CARRILLO, KITCHEN AND COUNTER WORKER, * Verbal permission to speak to the caregivers and representatives has been obtained from the patient. Yes * Community resources currently utilized Other * Please name any agencies selected above. MENTAL HEALTH DAY TREATMENT, 8 HOURS DAILY, WEDNESDAY THRU WEDNESDAY * Additional services required to return to the preadmission environment? Yes * Can the patient safely return to the preadmission environment? Yes * Has this patient been hospitalized within the prior 30 days at any hospital? No External Providers [facility] Next Contact Date: 12/30/2018 Service Request Date: Service Type: Resolution: Reviewer: Comments: Coverage Notice Reviewer: [id number] - Beto Peralta Notice Issued Date-Time: 12/27/2018 9:50 Notice Type: Patient Choice Letter Notice Delivered To: Patient Relationship to Patient: Machine Operator Picker Name: Delivery Method: HAND - Hand Delivered [place] Days: Prior Verbal Notification: Recipient Understood Notice: Yes Recipient Signature: Yes Med Rec Note Co-signed by Attending: Coverage Notice Comment: no medical equipment provider preference Last DP export: 12/30/18 11:23 a Patient Name: DEVEN AGARWAL Page 86187 at 1232 All edits/amendments must be made on the electronic document DICTATION DATE: 12/30/18 1231 ELECTRICAL LOGGER: JESS 12/30/18 1231 RPT#: [id number] DC DATE: STATUS: ADM IN [facility] [address] [place] [address] END OF REPORT
--- NOTE | 2018-12-30 13:09 | MORECARE ---
CASE MANAGEMENT DISCHARGE SUMMARY PATIENT: DEVEN AGARWAL UNIT: [id number] ADM DATE: 12/23/18 AGE: 58 : 60 SEX: F ROOM/BED: D.2130 AUTHOR: ABELDOC PHYSICIAN: REFERRING PHYSICIAN: JOSE MARIA LITTLEJOHN MD DATE OF SERVICE: 12/30/18 Discharge Plan Patient Name: DEVEN AGARWAL Facility: [facility]:[place] : 1960 Planned Disposition: Other Type of Facility Anticipated Discharge Date: 12/30/18 Discharge Date: Expected LOS: 7 Initial Reviewer: [id number] Initial Review Date: 12/27/2018 Generated: 12/30/18 2:09 pm Comments DCP- Discharge Planning Updated by [id number]: Beto Peralta on 12/30/18 12:[address] Patient Name: DEVEN AGARWAL Encounter No: [id number] : 1960 Primary Insurance: MEDICAID [place] Anticipated DC Date: 12-30-2018 Planned Disposition: Other Type of Facility External Planned Provider: [facility] DCP follow-up note: CM RECEIVED DISCHARGE, CALLED CECILIA OF [facility] AT [phone] AND DISCUSSED DISCHARGE NEEDS. CECILIA REPORTS HAVING NEBULIZER AND PORTABLE OXYGEN CONCENTRATOR AT THE FACILITY FOR PT TO USE. CECILIA REPORTS MEDICAID WILL NOT COVER A PORTABLE CONCENTRATOR AND THEY CANNOT HAVE OXYGEN BOTTLES IN THE HOUSE. CECILIA ASKED THAT NEBULIZER ORDER BE FAXED TO [facility] FOR HOME DELIVERY. CECILIA REPORTS MEDICAID WILL NOT COVER TRELEGY INHALER. MAXIMINO PAGED AND SPOKE TO DR. LOPEZ WHO DIRECTED CM TO USE PULMICORT OR FLOVENT INHALER. CM CALLED [facility], , SPOKE TO PHARMACISTS DEVEN, DETERMINED THAT FLOVENT INHALER. ORDER FOR FLOVENT 110 BID OBTAINED. MAXIMINO NOTIFIED CECILIA AT [facility]. CM FAXED CURRENT DISCHARGE MEDICATIONS LIST AND INFORMATION TO CECILIA AT [phone]. CM CALLED [facility], , SPOKE TO SHAYNA WHO WILL ACCEPT REFERRAL AND ORDER NEBULIZER; SHAYNA CONFIRMED THAT MEDICAID WILL NOT PAY FOR PORTABLE OXYGEN CONCENTRATOR AND PT WOULD BE REQUIRED TO PAY $2500 UP FRONT FOR A PORTABLE OXYGEN CONCENTRATOR. CM INFORMED SHAYNA THAT PT WILL NOT NEED PORTABLE OXYGEN BOTTLES. CM WAITING ABG TESTING AND WILL FAX ABG AND ORDERS TO [facility] AT [phone]. FOR DISCHARGE, CALL CECILIA ARGUELLES AT [phone], [facility], TO ARRANGE DISCHARGE TRANSPORTATION BACK TO FACILITY. MILLIE CARTER DCP- Discharge Planning Updated by [id number]: Beto Peralta on 12/29/18 2:[address] Patient Name: DEVEN AGARWAL Encounter No: [id number] : 1960 Primary Insurance: MEDICAID [place] Anticipated DC Date: 12-28-2018 Planned Disposition: Other Type of Facility External Planned Provider: [facility] DCP follow-up note: CM RECEIVED CALL FROM CECILIA OF [facility] ASKING FOR UPDATE AND PROJECTED DISCHARGE DATE. CM FAXED CURRENT MEDICATIONS LIST AT CECILIA'S REQUEST TO [phone]. PT PLANS TO DISCHARGE BACK TO [facility]. CM WAITING ON PROCESSING OF TRILOGY ORDER AND IF ELIGIBLE, DELIVERY OF TRILOGY BY [facility]. FOR DISCHARGE BACK TO [facility], NURSE REPORT TO BE CALLED TO CECILIA ARGUELLES AT [phone], FAX DISCHARGE INFORMATION TO [facility] AT [phone]. MILLIE CARTER DCP- Discharge Planning Updated by [id number]: Beto Peralta on 12/27/18 3:[address] Patient Name: DEVEN AGARWAL Admission Status: ER Accout number: [id number] Admission Date: 12-23-2018 : 1960 Admission Diagnosis: Attending: JOSE MARIA LITTLEJOHN Current LOS: 4 Anticipated DC Date: 12-28-2018 Planned Disposition: Other Type of Facility Primary Insurance: MEDICAID [place] Planned External Provider: [facility] Work [facility] Discharge Planning Comments: CM MET WITH PT IN ROOM TO DISCUSS DISCHARGE PLANNING AND NEEDS. PT REPORTS LIVING AT [facility] FOR THE PAST 18 YEARS. PT HAS HOME OXYGEN AND A ROLLING WALKER WITH SEAT AND BRAKES. PT DOES NOT KNOW WHO HER PROVIDER IS NOR DOES SHE KNOW WHO PROVIDES HER MEDICATIONS. PT DIRECTED CM TO CALL NURSE AT HOME, CECILIA ARGUELLES. PT ATTENDS DAY TREATMENT 8 HOURS PER DAY, WEDNESDAY THROUGH WEDNESDAY. PT HAS NO OUTSIDE SERVICES ASSISTING IN THE HOME. CM DISCUSSED AVAILABILITY OF HOME HEALTH, REHAB SERVICES AND MEDICAL EQUIPMENT. PT DENIES DISCHARGE NEEDS AND DOES WANT THE TRILOGY MACHINE, STATING SHE WILL WEAR IT AT HOME. PT REPORTS [facility] WILL PICK HER UP FOR DISCHARGE HOME. CM CALLED CECILIA ARGUELLES, , VERIFIED PT'S PHARMACY OF [facility] FOR SHELTER MEDICATIONS AND [facility] FOR SHORT TERM MEDICATION NEEDS. PT'S OXYGEN IS FROM [facility], BUT CECILIA DOES NOT THINK THAT [facility] PROVIDES TRILOGY. PT CAN HAVE TRILOGY AT FACILITY BUT SHE WILL BE IN DAY TREATMENT ON WEDNESDAY THRU WEDNESDAY, 8 HOURS DAILY AND WILL NOT BE ABLE TO GO HOME TO USE TRILOGY THEN. CM CALLED [facility], SPOKE TO JETHRO, THEY DO NOT PROVIDE TRILOGY MACHINES. CM CALLED [facility], , SPOKE TO WILMAN AND PROVIDED REFERRAL INFORMATION FOR TRILOGY. CM FAXED REFERRAL TO [facility], . WILMAN TO PROCESS ORDER AND IF MEDICAID APPROVES, [facility] WILL DELIVER TRILOGY TO HOSPITAL. PT PLANS TO DISCHARGE BACK TO [facility]. CM WAITING ON PROCESSING OF TRILOGY ORDER AND IF ELIGIBLE, DELIVERY OF TRILOGY BY [facility]. FOR DISCHARGE BACK TO [facility], NURSE REPORT TO BE CALLED TO CECILIA ARGUELLES AT [phone], FAX DISCHARGE INFORMATION TO [facility] AT [phone]. BERT PERALTA, CASE MANAGEMENT Appraiser Personal Property: Beto Peralta Appended by Beto Peralta on 12/27/2018 16:47 CDT: TRILOGY DELIVERED TO ROOM, PT INSTRUCTED ON USE BY WILMAN OF [facility]. DR. LOPEZ NOTIFIED. PT PLANS TO DISCHARGE BACK TO [facility]. CM WAITING ON PROCESSING OF TRILOGY ORDER AND IF ELIGIBLE, DELIVERY OF TRILOGY BY [facility]. FOR DISCHARGE BACK TO [facility], NURSE REPORT TO BE CALLED TO CECILIA ARGUELLES AT [phone], FAX DISCHARGE INFORMATION TO [facility] AT [phone]. BERT PERALTA, CASE MANAGEMENT DCPIA - Discharge Planning Initial Assessment Updated by [id number]: Beto Peralta on 12/27/18 12:05 pm * Is the patient Alert and Oriented? Yes * How many steps to enter\exit or inside your home? NONE * PCP DR. LITTLEJOHN * Pharmacy [facility] (DIRECTOR OF SAFETY AND SECURITY), [place] (SHORT TERM) * Preadmission Environment Retirement * Facility Name [facility] * ADLs Partial Dependent * Partial ADLs (Assistance needed) Medication Management * Equipment Oxygen Rolling Walker * Other Equipment ROLLATOR WALKER, HOME OXYGEN AT NIGHT ONLY [facility], MEDICAL EQUIPMENT PROVIDER * List name and contact numbers for known caregivers / representatives who currently or will assist patient after discharge: CECILIA ARGUELLES, [facility] NURSE, JASMINE CARRILLO, CERTIFIED INDOOR ENVIRONMENTALIST, * Verbal permission to speak to the caregivers and representatives has been obtained from the patient. Yes * Community resources currently utilized Other * Please name any agencies selected above. [facility] DAY TREATMENT, 8 HOURS DAILY, WEDNESDAY THRU WEDNESDAY * Additional services required to return to the preadmission environment? Yes * Can the patient safely return to the preadmission environment? Yes * Has this patient been hospitalized within the prior 30 days at any hospital? No Coverage Notice Reviewer: [id number] - Beto Peralta Notice Issued Date-Time: 12/27/2018 9:50 Notice Type: Patient Choice Letter Notice Delivered To: Patient Relationship to Patient: Manager Recruiting Name: Delivery Method: HAND - Hand Delivered [place] Days: Prior Verbal Notification: Recipient Understood Notice: Yes Recipient Signature: Yes Med Rec Note Co-signed by Attending: Coverage Notice Comment: no medical equipment provider preference Last DP export: 12/30/18 11:32 a Patient Name: DEVEN AGARWAL Page [id number] at 1309 All edits/amendments must be made on the electronic document DICTATION DATE: 12/30/18 1308 SCIENTIST: JESS 12/30/18 1308 RPT#: [id number] [place] DATE: STATUS: ADM IN [facility] [address] [place] [address] END OF REPORT
--- NOTE | 2018-12-30 15:35 | MORECARE ---
CASE MANAGEMENT DISCHARGE SUMMARY PATIENT: DEVEN AGARWAL UNIT: [id number] ADM DATE: 12/23/18 AGE: 58 : 60 SEX: F ROOM/BED: D.2130 AUTHOR: ABELDOC PHYSICIAN: REFERRING PHYSICIAN: JOSE MARIA LITTLEJOHN MD DATE OF SERVICE: 12/30/18 Discharge Plan Patient Name: DEVEN AGARWAL Facility: [facility]:[place] : 1960 Planned Disposition: Other Type of Facility Anticipated Discharge Date: 12/30/18 Discharge Date: Expected LOS: 7 Initial Reviewer: [id number] Initial Review Date: 12/27/2018 Generated: 12/30/18 4:35 pm Comments DCP- Discharge Planning Updated by [id number]: Beto Peralta on 12/30/18 12:[address] Patient Name: DEVEN AGARWAL Encounter No: [id number] : 1960 Primary Insurance: MEDICAID [place] Anticipated DC Date: 12-30-2018 Planned Disposition: Other Type of Facility External Planned Provider: [facility] DCP follow-up note: CM RECEIVED DISCHARGE, CALLED CECILIA OF [facility] AT [phone] AND DISCUSSED DISCHARGE NEEDS. CECILIA REPORTS HAVING NEBULIZER AND PORTABLE OXYGEN CONCENTRATOR AT THE FACILITY FOR PT TO USE. CECILIA REPORTS MEDICAID WILL NOT COVER A PORTABLE CONCENTRATOR AND THEY CANNOT HAVE OXYGEN BOTTLES IN THE HOUSE. CECILIA ASKED THAT NEBULIZER ORDER BE FAXED TO [facility] FOR HOME DELIVERY. CECILIA REPORTS MEDICAID WILL NOT COVER TRELEGY INHALER. MAXIMINO PAGED AND SPOKE TO DR. LOPEZ WHO DIRECTED CM TO USE PULMICORT OR FLOVENT INHALER. CM CALLED [facility], , SPOKE TO PHARMACISTS DEVEN, DETERMINED THAT FLOVENT INHALER. ORDER FOR FLOVENT 110 BID OBTAINED. MAXIMINO NOTIFIED CECILIA AT [facility]. CM FAXED CURRENT DISCHARGE MEDICATIONS LIST AND INFORMATION TO CECILIA AT [phone]. CM CALLED [facility], , SPOKE TO SHAYNA WHO WILL ACCEPT REFERRAL AND ORDER NEBULIZER; SHAYNA CONFIRMED THAT MEDICAID WILL NOT PAY FOR PORTABLE OXYGEN CONCENTRATOR AND PT WOULD BE REQUIRED TO PAY $2500 UP FRONT FOR A PORTABLE OXYGEN CONCENTRATOR. CM INFORMED SHAYNA THAT PT WILL NOT NEED PORTABLE OXYGEN BOTTLES. CM WAITING ABG TESTING AND WILL FAX ABG AND ORDERS TO [facility] AT [phone]. FOR DISCHARGE, CALL CECILIA ARGUELLES AT [phone], [facility], TO ARRANGE DISCHARGE TRANSPORTATION BACK TO FACILITY. MILLIE CARTER DCP- Discharge Planning Updated by [id number]: Beto Peralta on 12/29/18 2:[address] Patient Name: DEVEN AGARWAL Encounter No: [id number] : 1960 Primary Insurance: MEDICAID [place] Anticipated DC Date: 12-28-2018 Planned Disposition: Other Type of Facility External Planned Provider: [facility] DCP follow-up note: CM RECEIVED CALL FROM CECILIA OF [facility] ASKING FOR UPDATE AND PROJECTED DISCHARGE DATE. CM FAXED CURRENT MEDICATIONS LIST AT CECILIA'S REQUEST TO [phone]. PT PLANS TO DISCHARGE BACK TO [facility]. CM WAITING ON PROCESSING OF TRILOGY ORDER AND IF ELIGIBLE, DELIVERY OF TRILOGY BY [facility]. FOR DISCHARGE BACK TO [facility], NURSE REPORT TO BE CALLED TO CECILIA ARGUELLES AT [phone], FAX DISCHARGE INFORMATION TO [facility] AT [phone]. MILLIE CARTER DCP- Discharge Planning Updated by [id number]: Beto Peralta on 12/27/18 3:[address] Patient Name: DEVEN AGARWAL Admission Status: ER Accout number: [id number] Admission Date: 12-23-2018 : 1960 Admission Diagnosis: Attending: JOSE MARIA LITTLEJOHN Current LOS: 4 Anticipated DC Date: 12-28-2018 Planned Disposition: Other Type of Facility Primary Insurance: MEDICAID [place] Planned External Provider: [facility] Work [facility] Discharge Planning Comments: CM MET WITH PT IN ROOM TO DISCUSS DISCHARGE PLANNING AND NEEDS. PT REPORTS LIVING AT [facility] FOR THE PAST 18 YEARS. PT HAS HOME OXYGEN AND A ROLLING WALKER WITH SEAT AND BRAKES. PT DOES NOT KNOW WHO HER PROVIDER IS NOR DOES SHE KNOW WHO PROVIDES HER MEDICATIONS. PT DIRECTED CM TO CALL NURSE AT HOME, CECILIA ARGUELLES. PT ATTENDS DAY TREATMENT 8 HOURS PER DAY, WEDNESDAY THROUGH WEDNESDAY. PT HAS NO OUTSIDE SERVICES ASSISTING IN THE HOME. CM DISCUSSED AVAILABILITY OF HOME HEALTH, REHAB SERVICES AND MEDICAL EQUIPMENT. PT DENIES DISCHARGE NEEDS AND DOES WANT THE TRILOGY MACHINE, STATING SHE WILL WEAR IT AT HOME. PT REPORTS [facility] WILL PICK HER UP FOR DISCHARGE HOME. CM CALLED CECILIA ARGUELLES, , VERIFIED PT'S PHARMACY OF [facility]ICATIONS AND [facility] FOR SHORT TERM MEDICATION NEEDS. PT'S OXYGEN IS FROM [facility], BUT CECILIA DOES NOT THINK THAT [facility] PROVIDES TRILOGY. PT CAN HAVE TRILOGY AT FACILITY BUT SHE WILL BE IN DAY TREATMENT ON WEDNESDAY THRU WEDNESDAY, 8 HOURS DAILY AND WILL NOT BE ABLE TO GO HOME TO USE TRILOGY THEN. CM CALLED [facility], SPOKE TO JETHRO, THEY DO NOT PROVIDE TRILOGY MACHINES. CM CALLED [facility], , SPOKE TO WILMAN AND PROVIDED REFERRAL INFORMATION FOR TRILOGY. CM FAXED REFERRAL TO [facility], . [facility] TO PROCESS ORDER AND IF MEDICAID APPROVES, [facility] WILL DELIVER TRILOGY TO HOSPITAL. PT PLANS TO [facility]CHARGE BACK TO [facility]. CM WAITING ON PROCESSING OF TRILOGY ORDER AND IF ELIGIBLE, DELIVERY OF TRILOGY BY [facility]. FOR DISCHARGE BACK TO [facility], NURSE REPORT TO BE CALLED TO CECILIA ARGUELLES AT [phone], FAX DISCHARGE INFORMATION TO [facility] AT [phone]. BERT PERALTA, CASE MANAGEMENT Internal Carver: Beto Peralta Appended by Beto Peralta on 12/27/2018 16:47 CDT: TRILOGY DELIVERED TO ROOM, PT INSTRUCTED ON USE BY [facility] OF [facility]. DR. LOPEZ NOTIFIED. PT PLANS TO DISCHARGE BACK TO [facility]. CM WAITING ON PROCESSING OF TRILOGY ORDER AND IF ELIGIBLE, DELIVERY OF TRILOGY BY [facility]. FOR DISCHARGE BACK TO [facility], NURSE REPORT TO BE CALLED TO CECILIA ARGUELLES AT [phone], FAX DISCHARGE INFORMATION TO [facility] AT [phone]. BERT PERALTA, CASE MANAGEMENT DCPIA - Discharge Planning Initial Assessment Updated by [id number]: Beto Peralta on 12/27/18 12:05 pm * Is the patient Alert and Oriented? Yes * How many steps to enter\exit or inside your home? NONE * PCP DR. LITTLEJOHN * Pharmacy [facility] (SECURITY INSTALLATION SALES TECHNICIAN), [place] (SHORT TERM) * Preadmission Environment Alf * Facility Name [facility] * ADLs Partial Dependent * Partial ADLs (Assistance needed) Medication Management * Equipment Oxygen Rolling Walker * Other Equipment ROLLATOR WALKER, HOME OXYGEN AT NIGHT ONLY [facility], MEDICAL EQUIPMENT PROVIDER * List name and contact numbers for known caregivers / representatives who currently or will assist patient after discharge: CECILIA ARGUELLES, [facility] NURSE, JASMINE CARRILLO, NAMED ACCOUNT EXECUTIVE, * Verbal permission to speak to the caregivers and representatives has been obtained from the patient. Yes * Community resources currently utilized Other * Please name any agencies selected above. MENTAL HEALTH DAY TREATMENT, 8 HOURS DAILY, WEDNESDAY THRU WEDNESDAY * Additional services required to return to the preadmission environment? Yes * Can the patient safely return to the preadmission environment? Yes * Has this patient been hospitalized within the prior 30 days at any hospital? No Coverage Notice Reviewer: [id number] - Beto Peralta Notice Issued Date-Time: 12/27/2018 9:50 Notice Type: Patient Choice Letter Notice Delivered To: Patient Relationship to Patient: Director Of Conservation Name: Delivery Method: HAND - Hand Delivered [place] Days: Prior Verbal Notification: Recipient Understood Notice: Yes Recipient Signature: Yes Med Rec Note Co-signed by Attending: Coverage Notice Comment: no medical equipment provider preference Last DP export: 12/30/18 12:09 p Patient Name: DEVEN AGARWAL Page [id number] at 1535 All edits/amendments must be made on the electronic document DICTATION DATE: 12/30/18 1536 FREIGHT ELEVATOR OPERATOR: JESS 12/30/18 1531 RPT#: [id number] ME DATE: STATUS: ADM IN [facility] [address] [place] [address] END OF REPORT
--- NOTE | 2018-12-30 15:46 | MORECARE ---
CASE MANAGEMENT DISCHARGE SUMMARY PATIENT: DEVEN AGARWAL UNIT: [id number] ADM DATE: 12/23/18 AGE: 58 : 60 SEX: F ROOM/BED: D.2130 AUTHOR: ABELDOC PHYSICIAN: REFERRING PHYSICIAN: JOSE MARIA LITTLEJOHN MD DATE OF SERVICE: 12/30/18 Discharge Plan Patient Name: DEVEN AGARWAL Facility: [facility]:[place] : 1960 Planned Disposition: Other Type of Facility Anticipated Discharge Date: 12/30/18 Discharge Date: Expected LOS: 7 Initial Reviewer: [id number] Initial Review Date: 12/27/2018 Generated: 12/30/18 4:46 pm Comments DCP- Discharge Planning Updated by [id number]: Beto Peralta on 12/30/18 2:[address] Patient Name: DEVEN AGARWAL Encounter No: [id number] : 1960 Primary Insurance: [place]ID [place] Anticipated DC Date: 12-30-2018 Planned Disposition: Other Type of Facility External Planned Provider: [facility] DCP follow-up note: CM RECEIVED DISCHARGE, CALLED CECILIA OF [facility] AT [phone] AND DISCUSSED DISCHARGE NEEDS. CECILIA REPORTS HAVING NEBULIZER AND PORTABLE OXYGEN CONCENTRATOR AT THE FACILITY FOR PT TO USE. CECILIA REPORTS MEDICAID WILL NOT COVER A PORTABLE CONCENTRATOR AND THEY CANNOT HAVE OXYGEN BOTTLES IN THE HOUSE. CECILIA ASKED THAT NEBULIZER ORDER BE FAXED TO [facility] FOR HOME DELIVERY. CECILIA REPORTS MEDICAID WILL NOT COVER TRELEGY INHALER. MAXIMINO PAGED AND SPOKE TO DR. LOPEZ WHO DIRECTED CM TO USE PULMICORT OR FLOVENT INHALER. CM CALLED [facility], , SPOKE TO PHARMACISTS DEVEN, DETERMINED THAT FLOVENT INHALER. ORDER FOR FLOVENT 110 BID OBTAINED. MAXIMINO NOTIFIED CECILIA AT [facility]. CM FAXED CURRENT DISCHARGE MEDICATIONS LIST AND INFORMATION TO CECILIA AT [phone]. CM CALLED [facility], , SPOKE TO SHAYNA WHO WILL ACCEPT REFERRAL AND ORDER NEBULIZER; SHAYNA CONFIRMED THAT MEDICAID WILL NOT PAY FOR PORTABLE OXYGEN CONCENTRATOR AND PT WOULD BE REQUIRED TO PAY $2500 UP FRONT FOR A PORTABLE OXYGEN CONCENTRATOR. MAXIMINO INFORMED SHAYNA THAT PT WILL NOT NEED PORTABLE OXYGEN BOTTLES. CM WAITING ABG TESTING AND WILL FAX ABG AND ORDERS TO [facility] AT [phone]. FOR DISCHARGE, CALL CECILIA ARGUELLES AT [phone], [facility], TO ARRANGE DISCHARGE TRANSPORTATION BACK TO FACILITY. BERT PERALTA, CASE MANAGEMENT Appended by Beto Peralta on 12/30/2018 15:37 CDT: CM FAXED REFERRAL INFORMATION FOR NEBULIZER WITH ABG TESTING TO [facility] AT [phone]. MAXIMINO SPOKE TO SHAYNA AT [facility] AND INFORMED HER THAT CECILIA AT [facility] INSTRUCTED TO NOT HAVE PORTABLE OXYGEN TANKS DELIVERED THEY ARE USING A PORTABLE OXYGEN CONCENTRATOR AT THE FACILITY. PT NEEDS ONLY A NEBULIZER. SHAYNA TO PROCESS ORDER AND ARRANGE NEBULIZER DELIVERY TO PT AT [facility]. [facility] HAS NEBULIZER FOR PT TO USE UNTIL THE NEW ONE IS DELIVERED. MAXIMINO SPOKE TO BEDSIDE NURSE WHO INFORMED CM THAT REPORT HAS BEEN CALLED AND [facility] IS ON THE WAY TO DELI MANAGER PT NOW. MILLIE ROBERTSON MANGEMENT DCP- Discharge Planning Updated by [id number]: Beto Peralta on 12/29/18 2:[address] Patient Name: DEVEN AGARWAL Encounter No: [id number] : 1960 Primary Insurance: [place]ID [place] Anticipated DC Date: 12-28-2018 Planned Disposition: Other Type of Facility External Planned Provider: [facility] DCP follow-up note: CM RECEIVED CALL FROM CECILIA OF [facility] ASKING FOR UPDATE AND PROJECTED DISCHARGE DATE. CM FAXED CURRENT MEDICATIONS LIST AT CECILIA'S REQUEST TO [phone]. PT PLANS TO DISCHARGE BACK TO [facility] HOME. CM WAITING ON PROCESSING OF TRILOGY ORDER AND IF ELIGIBLE, DELIVERY OF TRILOGY BY [facility]. FOR DISCHARGE BACK TO [facility], NURSE REPORT TO BE CALLED TO CECILIA ARGUELLES AT [phone], FAX DISCHARGE INFORMATION TO [facility] AT [phone]. BERT PERALTA, MILLIE ZENG DCP- Discharge Planning Updated by [id number]: Beto Peralta on 12/27/18 3:[address] Patient Name: DEVEN AGARWAL Admission Status: ER Accout number: [id number] Admission Date: 12-23-2018 : 1960 Admission Diagnosis: Attending: JOSE MARIA LITTLEJOHN Current LOS: 4 Anticipated DC Date: 12-28-2018 Planned Disposition: Other Type of Facility Primary Insurance: [place]ID [place] Planned External Provider: [facility] Longterm Discharge Planning Comments: CM MET WITH PT IN ROOM TO DISCUSS DISCHARGE PLANNING AND NEEDS. PT REPORTS LIVING AT [facility] FOR THE PAST 18 YEARS. PT HAS HOME OXYGEN AND A ROLLING WALKER WITH SEAT AND BRAKES. PT DOES NOT KNOW WHO HER PROVIDER IS NOR DOES SHE KNOW WHO PROVIDES HER MEDICATIONS. PT DIRECTED CM TO CALL NURSE AT HOME, CECILIA ARGUELLES. PT ATTENDS DAY TREATMENT 8 HOURS PER DAY, WEDNESDAY THROUGH WEDNESDAY. PT HAS NO OUTSIDE SERVICES ASSISTING IN THE HOME. CM DISCUSSED AVAILABILITY OF HOME HEALTH, REHAB SERVICES AND MEDICAL EQUIPMENT. PT DENIES DISCHARGE NEEDS AND DOES WANT THE TRILOGY MACHINE, STATING SHE WILL WEAR IT AT HOME. PT REPORTS [facility] WILL PICK HER UP FOR DISCHARGE HOME. CM CALLED CECILIA ARGUELLES, , VERIFIED PT'S PHARMACY OF [facility]ICATION[facility] AND [facility] FOR [facility] MEDICATION NEEDS. PT'S OXYGEN IS FROM [facility], BUT CECILIA DOES NOT THINK THAT [facility] PROVIDES TRILOGY. PT CAN HAVE TRILOGY AT FACILITY BUT SHE WILL BE IN DAY TREATMENT ON WEDNESDAY THRU WEDNESDAY, 8 HOURS DAILY AND WILL NOT BE ABLE TO GO HOME TO USE TRILOGY THEN. CM CALLED [facility], SPOKE TO JETHRO, THEY DO NOT PROVIDE TRILOGY MACHINES. CM CALLED [facility], , SPOKE TO WILMAN AND PROVIDED REFERRAL INFORMATION FOR TRILOGY. CM FAXED REFERRAL TO [facility], . [facility] TO PROCESS ORDER AND IF MEDICAID APPROVES, [facility] WILL DELIVER TRILOGY TO HOSPITAL. PT PLANS TO DISCHARGE BACK TO [facility]. CM WAITING ON PROCESSING OF TRILOGY ORDER AND IF ELIGIBLE, DELIVERY OF TRILOGY BY [facility]. FOR DISCHARGE BACK TO [facility], NURSE REPORT TO BE CALLED TO CECILIA ARGUELLES AT [phone], FAX DISCHARGE INFORMATION TO [facility] AT [phone]. BERT PERALTA, CASE MANAGEMENT Director Trade: Beto Peralta Appended by Beto Peralta on 12/27/2018 16:47 CDT: TRILOGY DELIVERED TO ROOM, PT INSTRUCTED ON USE BY [facility]. DR. LOPEZ NOTIFIED. PT PLANS TO DISCHARGE BACK TO [facility]. CM WAITING ON PROCESSING OF TRILOGY ORDER AND IF ELIGIBLE, DELIVERY OF [facility]OGY [facility]. FOR DISCHARGE BACK TO [facility], NURSE REPORT TO BE CALLED TO CECILIA ARGUELLES AT [phone], FAX DISCHARGE INFORMATION TO [facility] AT [phone]. BERT PERALTA, CASE MANAGEMENT DCPIA - Discharge Planning Initial Assessment Updated by [id number]: Beto Peralta on 12/27/18 12:05 pm * Is the patient Alert and Oriented? Yes * How many steps to enter\exit or inside your home? NONE * PCP DR. LITTLEJOHN * Pharmacy [facility] ([facility]) * Preadmission Environment Longterm * Facility Name [facility] * ADLs Partial Dependent * Partial ADLs (Assistance needed) Medication Management * Equipment Oxygen Rolling Walker * Other Equipment ROLLATOR WALKER, HOME OXYGEN AT NIGHT ONLY [facility], MEDICAL EQUIPMENT PROVIDER * List name and contact numbers for known caregivers / representatives who currently or will assist patient after discharge: CECILIA ARGUELLES, [facility] NURSE, JASMINE CARRILLO, MAJOR GENERAL, * Verbal permission to speak to the caregivers and representatives has been obtained from the patient. Yes * Community resources currently utilized Other * Please name any agencies selected above. MENT[facility] DAY TREATMENT, 8 HOURS DAILY, WEDNESDAY THRU WEDNESDAY * Additional services required to return to the preadmission environment? Yes * Can the patient safely return to the preadmission environment? Yes * Has this patient been hospitalized within the prior 30 days at any hospital? No Coverage Notice Reviewer: [id number] - Beto Peralta Notice Issued Date-Time: 12/27/2018 9:50 Notice Type: Patient Choice Letter Notice Delivered To: Patient Relationship to Patient: [employer] Name: Delivery Method: HAND - Hand Delivered [place] Days: Prior Verbal Notification: Recipient Understood Notice: Yes Recipient Signature: Yes Med Rec Note Co-signed by Attending: Coverage Notice Comment: no medical equipment provider preference Last DP export: 12/30/18 2:35 p Patient Name: DEVEN AGARWAL Page [id number] at 1546 All edits/amendments must be made on the electronic document DICTATION DATE: 12/30/18 1545 AUTOMOTIVE SERVICE PROFESSIONAL: JESS 12/30/18 1545 RPT#: [id number] DC DATE: STATUS: ADM IN [facility] [address] [place] [address] END OF REPORT
[2018-12-31 06:11] LABS: IMMUNOGLOBULIN E 569 IU/mL (6-495)
== END 2018-12-30 16:16 | disposition home or self-care (01) | DRG 189 ==
LOC: D.ER 10:54 → D.M2 14:37
PROVIDERS: Family Medicine; Internal Medicine Pulmonary Disease; ADMIT Family Medicine; ATTEND Family Medicine
PROC: 5A09557 Assistance with Respiratory Ventilation, Greater than 96 Consecutive Hours, Continuous Positive Airway Pressure (ICD-10-PCS; principal; 2018-12-24)
DX: J96.22 Acute and chronic respiratory failure with hypercapnia (principal); J44.1 Chronic obstructive pulmonary disease with (acute) exacerbation; J90 Pleural effusion, not elsewhere classified; J98.11 Atelectasis; J96.21 Acute and chronic respiratory failure with hypoxia; P61.1 Polycythemia neonatorum; J20.9 Acute bronchitis, unspecified; F20.9 Schizophrenia, unspecified

== ENCOUNTER → 2019-02-03 09:13 | Outpatient (CLI) | payer OTHER ==
[2018-12-24 12:34] VITALS: BMI 27.9
[~2019-02-03 09:13] MED LIST: ALBUTEROL SULF8.5 GM INH; CELEXA20 MG PO; FLOVENT HFA 11012 GM INH; FUROSEMIDE20 MG PO; FUROSEMIDE40 MG PO; IPRAT-ALBUT 0.5-3 ML UPD; MUCINEX DM ER1 EAC1 PO; PREDNISONE10 MG PO; PREDNISONE20 MG PO; RISPERDAL4 MG PO; TRAZODONE HCL150 MG PO; TRELEGY ELLIPT1 EACH INH
== END | disposition home or self-care (01) ==
LOC: D.RT 09:13
PROVIDERS: ATTEND Internal Medicine Pulmonary Disease
DX: J44.9 Chronic obstructive pulmonary disease, unspecified (principal)

== ENCOUNTER → 2019-12-13 16:38 | Outpatient (CLI) | payer OTHER ==
[2018-12-24 12:34] VITALS: BMI 27.9
[2019-12-13 17:04] LABS: HEMATOCRIT 43.1 % (36.0-48.0); MCH 31.3 pg (26.0-34.0); MCHC 32.5 g/dL (31.0-37.0); MCV 96.2 fL (80.0-100.0); MEAN PLATELET VOLUME 11.2 fL (7.4-10.4); RBC 4.48 10x6/uL (4.00-5.40); WBC 8.4 10x3/uL (4.8-10.8)
[2019-12-13 17:11] LABS: PLATELET COUNT 236 10x3/uL (130-400)
[2019-12-13 17:51] LABS: LYMPHOCYTES 27 % (15-50); MONOCYTES 4 % (2-11); NEUTROPHILS 69 % (40-80); PLATELET ESTIMATE NORMAL
== END | disposition home or self-care (01) ==
LOC: D.LABREF 16:38
PROVIDERS: ATTEND Legal Medicine
DX: D75.1 Secondary polycythemia (principal)

== ENCOUNTER → 2020-03-25 09:40 | Outpatient (CLI) | payer OTHER ==
[2018-12-24 12:34] VITALS: BMI 27.9
== END | disposition home or self-care (01) ==
LOC: D.CT 09:40 → D.RT 10:30
PROVIDERS: ATTEND Internal Medicine Pulmonary Disease
DX: J44.9 Chronic obstructive pulmonary disease, unspecified (principal); R91.8 Other nonspecific abnormal finding of lung field

== ENCOUNTER → 2020-04-24 11:00 | Outpatient (CLI) | payer OTHER ==
[2018-12-24 12:34] VITALS: BMI 27.9
== END | disposition home or self-care (01) ==
LOC: D.MAMMO 11:00
PROVIDERS: ATTEND Family Medicine
DX: Z12.31 Encounter for screening mammogram for malignant neoplasm of breast (principal)

== ENCOUNTER → 2021-01-03 08:28 | Outpatient (CLI) | payer OTHER ==
[2018-12-24 12:34] VITALS: BMI 27.9
== END | disposition home or self-care (01) ==
LOC: D.ECHO 08:28
PROVIDERS: ATTEND Internal Medicine Pulmonary Disease
DX: I27.21 Secondary pulmonary arterial hypertension (principal)